=== PATIENT | male | born 1960 | race African-American/Black ===

== ENCOUNTER 2017-06-09 20:35 | Inpatient (IN) | payer BC ==
--- NOTE | 2017-06-10 00:56 | PDOC ---
History of Present Illness - History of Present Illness Initial Comments: 06/10/17 01:00 57M with PMHx significant for diabetes, HTN (noncompliant), who presents to the ED for SOB on exertion. Patient reports 1 month of shortness of breath when walking a couple blocks. He reports trouble breathing when supine, requiring 3 or 4 pillows to sleep. 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 He also noted swelling in his lower extremities. Patient reports dark stools over 2 weeks ago but states his current bowels are normal. Patient reports recent dizziness and cramping in his hands and toes. Patient reports that he hasn't seen a doctor in over 6 months. Social Hx: 3- 4 bottles of beer every day for 20 years. Past cocaine use (over 10 years ago) Denies cough, nausea, vomit, diarrhea , fever chills, palpitations, back pain. Admits to intermittent urinary retention <Leticia Larsen - Last Filed: 06/10/17 01:47> <Isabella Valle - Last Filed: 06/10/17 07:41> - General Chief Complaint: Congestive Heart Failure Stated Complaint: SHORTNESS OF BREATH,DIZZINESS Time Seen by Provider: 06/09/17 23:54 Past History <Leticia Larsen - Last Filed: 06/10/17 01:47> - Past Medical History COPD: No Diabetes: Yes HTN: Yes - Suicide/Smoking/Psychosocial Hx Smoking History: Never smoked Have you smoked in the past 12 months: Yes Number of Cigarettes Smoked Daily: 2 Information on smoking cessation initiated: No Hx Alcohol Use: No Drug/Substance Use Hx: No Substance Use Type: None <Isabella Valle - Last Filed: 06/10/17 07:41> - Past Medical History Allergies/Adverse Reactions: Allergies Allergy/AdvReac Type Severity Reaction Status Date / Time No Known Allergies Allergy Verified 06/09/17 22:22 Home Medications: Ambulatory Orders NK [No Known Home Medication] 03/24/15 Review of Systems - Review of Systems Comments:: 06/10/17 01:13 GENERAL/CONSTITUTIONAL: No fever or chills. No weakness. HEAD, EYES, EARS, NOSE AND THROAT: No change in vision. No ear pain or discharge. No sore throat. CARDIOVASCULAR: No chest pain or shortness of breath. RESPIRATORY: +dyspnea on exertion. +orthopnea No cough, wheezing, or hemoptysis. GASTROINTESTINAL: No nausea, vomiting, diarrhea or constipation. Dark stools over 2 weeks ago (currently normal). GENITOURINARY: No dysuria, frequency. +urinary retention. MUSCULOSKELETAL: No joint or muscle swelling or pain. No neck or back pain. SKIN: +bilateral leg swelling. NEUROLOGIC: +dizziness. + recent cramping in extremities. No headache, loss of consciousness, or change in strength. ENDOCRINE: No increased thirst. No abnormal weight change. HEMATOLOGIC/LYMPHATIC: +anemic, no easy bleeding, or history of blood clots. ALLERGIC/IMMUNOLOGIC: No hives or skin allergy. <Leticia Larsen - Last Filed: 06/10/17 01:47> *Physical Exam - Vital Signs Last Vital Signs Temp Pulse Resp BP Pulse Ox 98.3 F 95 H 22 151/97 99 06/09/17 22:16 06/09/17 22:16 06/09/17 22:16 06/09/17 22:16 06/09/17 22:16 - Physical Exam Comments: 06/10/17 01:47 GENERAL: Awake, alert, and fully oriented, in no acute distress HEAD: No signs of trauma EYES: PERRLA, EOMI, sclera anicteric, conjunctiva clear. No jaundice. ENT: Auricles normal inspection, hearing grossly normal, nares patent, oropharynx clear without exudates. Moist mucosa NECK: Normal ROM, supple, no lymphadenopathy, JVD, or masses LUNGS: orthopnea, dyspnea on exertion. Breath sounds equal, clear to auscultation bilaterally. No wheezes, and no crackles HEART: Regular rate and rhythm, normal S1 and S2, no murmurs, rubs or gallops ABDOMEN: Soft, nontender, normoactive bowel sounds. No guarding, no rebound. No masses. No enlarged liver. EXTREMITIES: Normal range of motion, bilateral pitting edema up to the calf. No clubbing or cyanosis. No cords, erythema, or tenderness NEUROLOGICAL: Cranial nerves II through XII grossly intact. Normal speech, normal gait SKIN: Warm, Dry, normal turgor, no rashes or lesions noted. <Leticia Larsen - Last Filed: 06/10/17 01:47> - Vital Signs Last Vital Signs Temp Pulse Resp BP Pulse Ox 98.3 F 95 H 22 151/97 99 06/09/17 22:16 06/09/17 22:16 06/09/17 22:16 06/09/17 22:16 06/09/17 22:16 <Isabella Valle - Last Filed: 06/10/17 07:41> ED Treatment Course - LABORATORY CBC & Chemistry Diagram: 06/10/17 01:10 06/10/17 01:10 <Leticia Larsen - Last Filed: 06/10/17 01:47> - LABORATORY CBC & Chemistry Diagram: 06/10/17 01:10 06/10/17 01:10 <Isabella Valle - Last Filed: 06/10/17 07:41> Medical Decision Making - Medical Decision Making 06/10/17 05:48 Pt is refusing stool guaiac; pt comes with hx of fatigue and progressive SOB. He admits that he has dark stools for a week, but maintains that his stools are normal now. He wouldn't allow myself or the medical student to guaiac him. HB is low; type and cross requested. 06/10/17 07:39 Pt's receiving his 1st Unit of blood. Pt will be admitted to hospitalist. 06/10/17 07:41 Pt signed out to day ER doc who will admit to the day hospitalists. <Isabella Valle - Last Filed: 06/10/17 07:41> *DC/Admit/Observation/Transfer - Attestations Scribe Attestion: 06/10/17 01:55 Documentation prepared by Leticia Larsen, acting as medical office technology instructor for Isabella Valle MD. <Leticia Larsen - Last Filed: 06/10/17 01:47> <Isabella Valle - Last Filed: 06/10/17 07:41> Diagnosis at time of Disposition: Anemia, Fatigue, Dyspnea - Discharge Dispostion Condition at time of disposition: Poor
[2017-06-10] MEDS ORDERED: FUROSEMIDE 40 MG/4 ML INJECTABLE VIAL IVPUSH ONE (00:57)
[2017-06-10] MEDS ORDERED: FUROSEMIDE 40 MG/4 ML INJECTABLE VIAL ONE (01:01)
[2017-06-10 01:22] LABS: BASO % 1.1 % (0-2.0); EOS % 2.4 % (0-4.5); HEMATOCRIT 16.5 % (35.4-49); LYMPH % 20.7 % (8-40); MCHC 25.5 g/dl (32.0-35.9); MEAN CELL VOLUME 49.9 fl (80-96); MEAN PLT VOLUME 8.7 fl (7.5-11.1); MONO % 11.7 % (3.8-10.2); NEUT % 64.1 % (42.8-82.8); PLATELET COUNT 371 K/MM3 (134-434); RBC 3.31 M/mm3 (4.00-5.60); WHITE BLOOD COUNT 5.8 K/mm3 (4.0-10.0)
[2017-06-10 01:27] LABS: MCH 12.7 pg (25.7-33.7)
[2017-06-10 01:28] LABS: ADD RBC MORPHOLOGY YES; HEMOGLOBIN 4.2 GM/dL (11.7-16.9)
[2017-06-10 01:29] LABS: ANISOCYTOSIS 2+
[2017-06-10 01:35] LABS: INR 1.5 (0.82-1.09); PROTHROMBIN TIME (PATIENT) 16.9 SEC (9.98-11.88)
[2017-06-10 01:52] LABS: ALBUMIN 3.4 g/dl (3.4-5.0); ALK PHOS 103 U/L (45-117); ANION GAP 9 (8-16); BILIRUBIN,TOTAL 0.6 mg/dL (0.2-1.0); BLOOD UREA NITROGEN 12 mg/dL (7-18); CALCIUM 8.7 mg/dL (8.5-10.1); CHLORIDE 103 mmol/L (98-107); CO2 24 mmol/L (21-32); CREATININE 1.3 mg/dL (0.7-1.3); GLUCOSE,RANDOM 92 mg/dL (74-106); LIPASE 97 U/L (73-393); POTASSIUM 4.2 mmol/L (3.5-5.1); SGOT/AST 41 U/L (15-37); SGPT/ALT 95 U/L (12-78); SODIUM 136 mmol/L (136-145); TOT PROT 7.6 g/dl (6.4-8.2)
[2017-06-10] MEDS ORDERED: PANTOPRAZOLE SODIUM 40 MG VIAL IVPUSH ONE (08:10)
--- NOTE | 2017-06-10 09:06 | HP ---
CHIEF COMPLAINT: " SOB with exertion " PCP: No PCP HISTORY OF PRESENT ILLNESS: Patient is a 57-year-old male presented to the ED with the chief complaint of " SOB with exertion". As per the patient, he has been feeling very weak, tired and SOB with exertion x 1 week. Patient reports he never had these symptoms before. Gives history of NSAID use for knee pain. Denies chest pain, palpitation, abdominal pain, nausea, vomiting, fever, chills , rigors or sweating. Patient mentions he noticed dark colored stool 2 weeks ago, multiple episodes, intermittent. Last bowel movement was yesterday, non bloody. Bladder habit normal. Sleep/Appetite normal. Patient says he has never had colonoscopy or Endoscopy. Doesn't visit doctors regularly, non compliant with medications. 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 Family History: Non contributory. Allergies No Known Allergies Allergy (Verified 06/09/17 22:22) HOME MEDICATIONS: Home Medications Medication Instructions Recorded NK [No Known Home Medication] 03/24/15 REVIEW OF SYSTEMS CONSTITUTIONAL: Present: generalized weakness Absent: fever, chills, diaphoresis, malaise, loss of appetite, weight change HEENT: Absent: rhinorrhea, nasal congestion, throat pain, throat swelling, difficulty swallowing, mouth swelling, ear pain, eye pain, visual changes CARDIOVASCULAR: Absent: chest pain, syncope, palpitations, irregular heart rate, lightheadedness , peripheral edema RESPIRATORY: Present: shortness of breath, dyspnea with exertion, Absent: cough, orthopnea, wheezing, stridor, hemoptysis GASTROINTESTINAL: Absent: abdominal pain, abdominal distension, nausea, vomiting, diarrhea, constipation, melena, hematochezia GENITOURINARY: Absent: dysuria, frequency, urgency, hesitancy, hematuria, flank pain, genital pain MUSCULOSKELETAL: Absent: myalgia, arthralgia, joint swelling, back pain, neck pain SKIN: Absent: rash, itching, pallor HEMATOLOGIC/IMMUNOLOGIC: Absent: easy bleeding, easy bruising, lymphadenopathy, frequent infections ENDOCRINE: Absent: unexplained weight gain, unexplained weight loss, heat intolerance, cold intolerance NEUROLOGIC: Absent: headache, focal weakness or paresthesias, dizziness, unsteady gait, seizure, mental status changes, bladder or bowel incontinence PSYCHIATRIC: Absent: anxiety, depression, suicidal or homicidal ideation, hallucinations. PHYSICAL EXAMINATION Vital Signs - 24 hr 06/09/17 06/10/17 22:16 07:47 Temperature 98.3 F Pulse Rate 95 H Pulse Rate [ 98 H Left] Respiratory 22 16 Rate Blood Pressure 151/97 Blood Pressure 127/68 [Arm] O2 Sat by Pulse 99 95 Oximetry (%) GENERAL: Patient is comfortably lying in bed, Awake, alert, and fully oriented, in no acute distress. HEAD: Normal with no signs of trauma. EYES: EOM intact, Pallor +, no icterus. EARS, NOSE, THROAT: Ears normal. Moist mucous membranes. NECK: Supple. LUNGS: Breath sounds equal, clear to auscultation bilaterally. No wheezes, and no crackles. No accessory muscle use. HEART: Regular rate and rhythm, normal S1 and S2 with soft systolic murmur. ABDOMEN: Soft, nontender, not distended, normoactive bowel sounds, no guarding, no rebound, no masses. No hepatomegaly or splenomegaly. MUSCULOSKELETAL: Normal range of motion at all joints. No bony deformities or tenderness. No CVA tenderness. UPPER EXTREMITIES: 2+ pulses, warm, well-perfused. No cyanosis. No clubbing. No peripheral edema. LOWER EXTREMITIES: 2+ pulses, warm, well-perfused. No calf tenderness. No peripheral edema. NEUROLOGICAL: No facial droop, power 5/5 in all extremities, Cranial nerves II- XII intact. Normal speech. Gait not observed. PSYCHIATRIC: Cooperative. Good eye contact. Appropriate mood and affect. SKIN: Warm, dry, normal turgor, no rashes or lesions noted, normal capillary refill. Laboratory Results - last 24 hr 06/10/17 06/10/17 06/10/17 01:10 01:10 01:10 WBC 5.8 RBC 3.31 L Hgb 4.2 L* Hct 16.5 L MCV 49.9 L MCH 12.7 L MCHC 25.5 L RDW 22.0 H Plt Count 371 MPV 8.7 Neutrophils % 64.1 Lymphocytes % 20.7 Monocytes % 11.7 H Eosinophils % 2.4 Basophils % 1.1 Hypochromia 3+ Anisocytosis 2+ Microcytosis 3+ PT with INR 16.90 H INR 1.50 H Sodium Potassium Chloride Carbon Dioxide Anion Gap BUN Creatinine Creat Clearance w eGFR Random Glucose Calcium Total Bilirubin AST ALT Alkaline Phosphatase Creatine Kinase 121 Troponin I < 0.02 B-Natriuretic Peptide Total Protein Albumin Lipase Alcohol, Quantitative Blood Type Antibody Screen Crossmatch 06/10/17 06/10/17 06/10/17 01:10 01:10 01:10 WBC RBC Hgb Hct MCV MCH MCHC RDW Plt Count MPV Neutrophils % Lymphocytes % Monocytes % Eosinophils % Basophils % Hypochromia Anisocytosis Microcytosis PT with INR INR Sodium 136 Potassium 4.2 Chloride 103 Carbon Dioxide 24 Anion Gap 9 BUN 12 Creatinine 1.3 Creat Clearance w eGFR 56.70 Random Glucose 92 Calcium 8.7 Total Bilirubin 0.6 AST 41 H ALT 95 H Alkaline Phosphatase 103 Creatine Kinase Troponin I B-Natriuretic Peptide 877.41 H Total Protein 7.6 Albumin 3.4 Lipase 97 Alcohol, Quantitative < 5.0 Blood Type Antibody Screen Crossmatch 06/10/17 06/10/17 01:50 01:54 WBC RBC Hgb Hct MCV MCH MCHC RDW Plt Count MPV Neutrophils % Lymphocytes % Monocytes % Eosinophils % Basophils % Hypochromia Anisocytosis Microcytosis PT with INR INR Sodium Potassium Chloride Carbon Dioxide Anion Gap BUN Creatinine Creat Clearance w eGFR Random Glucose Calcium Total Bilirubin AST ALT Alkaline Phosphatase Creatine Kinase Troponin I B-Natriuretic Peptide Total Protein Albumin Lipase Alcohol, Quantitative Blood Type O POSITIVE O POSITIVE Antibody Screen Negative Crossmatch See Detail ASSESSMENT/PLAN: Patient is a 57-year-old male with significant past medical history of Hypertension, DM (non compliant), current smoker presented to the ED with the chief complaint of " SOB with exertion". # Symptomatic Microcytic anemia likely due to Upper GI bleed Could be due to NSAID use, PUD c/o SOB with exertion, on arrival, H/H 4.2/16.5 MCV 49.9 Admitted in Med-Surg/Inpatient 2 PRBC to be given with a repeat CBC 1 hr after transfusion Stool occult done at bed side, brown stool, no mike blood, report pending IV Protonix drip started IV hydration NPO BNP 877, will do an Echo Discussed case with Dr. Cat(covering for Dr. Choi) who agrees to the above plan. Plans to do a flip on 06/12 For preparation of the procedure, clear diet tomorrow, NPO after midnight on 06/11, Ducolax and Golytely to be given Iron profile not sent since patient had already received 1 PRBC when admission was sent. # Polysubstance abuse (Alcohol, cocaine) U. tox positive for cocaine, alcohol level < 5 Counseling for cessation # Diabetes Mellitus A1c sent, ISS, finger stick monitoring. Watch for hypoglycemic episodes. # FEN IV NS @ 83 mls.hr Electrolytes to be repeated in AM NPO # Prophylaxis For DVT: SCDs and early ambulation, no heparin due to anemia For GI: On IV Protonix drip # Code Status: Full Code # Dispo: Duration of stay depends on the result of the procedure. Illness, Investigation and Plan of care explained to the patient. He verbalized understanding. Case seen and discussed with Dr. Lee. Visit type - Emergency Visit Emergency Visit: Yes ED Registration Date: 06/10/17 Care time: The patient presented to the Emergency Department on the above date and was hospitalized for further evaluation of their emergent condition. - New Patient This patient is new to me today: Yes Date on this admission: 06/10/17 - Critical Care Critical Care patient: No
[2017-06-10] MEDS ORDERED: PANTOPRAZOLE SODIUM 40 MG VIAL ONE (10:17)
[2017-06-10] MEDS: SODIUM CHLORIDE 1,000 ML IV SCH (11:12)
[2017-06-10] MEDS: PANTOPRAZOLE SODIUM 80 MG in SODIUM CHLORIDE 100 ML IVPB SCH ×2 (12:09→17:31)
[2017-06-10 12:10] LABS: METHADONE, UR NEGATIVE ng/ml (CUTOFF=300); OPIATES, URI NEGATIVE ng/ml (CUTOFF=300); PHENCYCLIDINE,URINE NEGATIVE ng/ml (CUTOFF=25); URINE AMPHETAMINES NEGATIVE ng/ml (CUTOFF=500); URINE BARBITURATES NEGATIVE ng/ml (CUTOFF=200); URINE BENZODIAZEPINES NEGATIVE ng/ml (CUTOFF=200)
[2017-06-10 12:11] LABS: COCAINE, UR POSITIVE ng/ml (CUTOFF=300)
--- NOTE | 2017-06-10 13:02 | PN ---
Teaching Attending Note Name of Resident: Jazz Ewing ATTENDING PHYSICIAN STATEMENT Time of evaluation: 9:40 AM I saw and evaluated the patient. I reviewed the resident's note and discussed the case with the resident. I agree with the resident's findings and plan as documented. SUBJECTIVE: 57 yom with PMHx of DM, HTN, no recent follow up, not on any meds, comes with progressive VICENTE, now only with walking a few steps. Reports melena few weeks ago , none recently. Denies any chest pain, palpitations, dizziness, BRBRP, leg swelling, PND/orthopnea. Was found with Hb 4.2 in ED, and guaiac neg. Currently patient in bed comfortable, denies any symptoms. 12 point ROS done, neg except above. OBJECTIVE: Vital Signs Period Temp Pulse Resp BP Sys/Mac Pulse Ox Last 24 Hr 98.3 F 95-98 16-22 127-151/68-97 95-99 Intake & Output 06/07/17 06/08/17 06/09/17 06/10/17 23:59 23:59 23:59 23:59 Weight 260 lb GENERAL: Awake, alert, and fully oriented, in no acute distress, positive pallor HEAD: Normal with no signs of trauma. EYES: Pupils equal, round and reactive to light, extraocular movements intact, sclera anicteric, conjunctiva clear. No lid lag. EARS, NOSE, THROAT: Ears normal, nares patent, oropharynx clear without exudates. Moist mucous membranes. NECK: Normal range of motion, supple without lymphadenopathy, JVD, or masses. LUNGS: Breath sounds equal, clear to auscultation bilaterally. No wheezes, and no crackles. No accessory muscle use. HEART: S1S2 regular ABDOMEN: Soft, obese, nontender, not distended, normoactive bowel sounds, no guarding, no rebound, no masses. No hepatomegaly or splenomegaly elicited. Rectal: skin tag no external haemorrhoids, minimal watery brown stool, guaiac neg MUSCULOSKELETAL: Normal range of motion at all joints. No bony deformities or tenderness. No CVA tenderness. UPPER EXTREMITIES: 2+ pulses, warm, well-perfused. No cyanosis. No clubbing. No peripheral edema. LOWER EXTREMITIES: 2+ pulses, warm, well-perfused. No calf tenderness. No peripheral edema. NEUROLOGICAL: Cranial nerves II-XII intact. Normal speech. PSYCHIATRIC: Cooperative. Good eye contact. Appropriate mood and affect. SKIN: Warm, dry, normal turgor, no rashes or lesions noted, normal capillary refill. Home Medication List Medication Instructions Recorded Confirmed Type NK [No Known Home Medication] 03/24/15 06/09/17 History Active Medications Generic Name Dose Route Start Last Admin Trade Name Naveen PRN Reason Stop Dose Admin Pantoprazole Sodium 80 mg/ 100 mls @ 10 mls/hr 06/10/17 08:15 Sodium Chloride IVPB Q10H ANNA 8 MG/HR Sodium Chloride 1,000 mls @ 83 mls/hr 06/10/17 09:00 06/10/17 11:12 Normal Saline - IV 83 mls/hr ASDIR ANNA Administration Laboratory Results - last 24 hr 06/10/17 06/10/17 06/10/17 01:10 01:10 01:10 WBC 5.8 RBC 3.31 L Hgb 4.2 L* Hct 16.5 L MCV 49.9 L MCH 12.7 L MCHC 25.5 L RDW 22.0 H Plt Count 371 MPV 8.7 Neutrophils % 64.1 Lymphocytes % 20.7 Monocytes % 11.7 H Eosinophils % 2.4 Basophils % 1.1 Hypochromia 3+ Anisocytosis 2+ Microcytosis 3+ PT with INR 16.90 H INR 1.50 H Sodium Potassium Chloride Carbon Dioxide Anion Gap BUN Creatinine Creat Clearance w eGFR Random Glucose Calcium Total Bilirubin AST ALT Alkaline Phosphatase Creatine Kinase 121 Troponin I < 0.02 B-Natriuretic Peptide Total Protein Albumin Lipase Stool Occult Blood Opiates Screen Methadone Screen Barbiturate Screen Phencyclidine Screen Ur Amphetamines Screen MDMA (Ecstasy) Screen Benzodiazepines Screen Cocaine Screen U Marijuana (THC) Screen Alcohol, Quantitative Blood Type Antibody Screen Crossmatch 06/10/17 06/10/17 06/10/17 01:10 01:10 01:10 WBC RBC Hgb Hct MCV MCH MCHC RDW Plt Count MPV Neutrophils % Lymphocytes % Monocytes % Eosinophils % Basophils % Hypochromia Anisocytosis Microcytosis PT with INR INR Sodium 136 Potassium 4.2 Chloride 103 Carbon Dioxide 24 Anion Gap 9 BUN 12 Creatinine 1.3 Creat Clearance w eGFR 56.70 Random Glucose 92 Calcium 8.7 Total Bilirubin 0.6 AST 41 H ALT 95 H Alkaline Phosphatase 103 Creatine Kinase Troponin I B-Natriuretic Peptide 877.41 H Total Protein 7.6 Albumin 3.4 Lipase 97 Stool Occult Blood Opiates Screen Methadone Screen Barbiturate Screen Phencyclidine Screen Ur Amphetamines Screen MDMA (Ecstasy) Screen Benzodiazepines Screen Cocaine Screen U Marijuana (THC) Screen Alcohol, Quantitative < 5.0 Blood Type Antibody Screen Crossmatch 06/10/17 06/10/17 06/10/17 01:50 01:54 10:20 WBC RBC Hgb Hct MCV MCH MCHC RDW Plt Count MPV Neutrophils % Lymphocytes % Monocytes % Eosinophils % Basophils % Hypochromia Anisocytosis Microcytosis PT with INR INR Sodium Potassium Chloride Carbon Dioxide Anion Gap BUN Creatinine Creat Clearance w eGFR Random Glucose Calcium Total Bilirubin AST ALT Alkaline Phosphatase Creatine Kinase Troponin I B-Natriuretic Peptide Total Protein Albumin Lipase Stool Occult Blood Negative Opiates Screen Methadone Screen Barbiturate Screen Phencyclidine Screen Ur Amphetamines Screen MDMA (Ecstasy) Screen Benzodiazepines Screen Cocaine Screen U Marijuana (THC) Screen Alcohol, Quantitative Blood Type O POSITIVE O POSITIVE Antibody Screen Negative Crossmatch See Detail 06/10/17 11:18 WBC RBC Hgb Hct MCV MCH MCHC RDW Plt Count MPV Neutrophils % Lymphocytes % Monocytes % Eosinophils % Basophils % Hypochromia Anisocytosis Microcytosis PT with INR INR Sodium Potassium Chloride Carbon Dioxide Anion Gap BUN Creatinine Creat Clearance w eGFR Random Glucose Calcium Total Bilirubin AST ALT Alkaline Phosphatase Creatine Kinase Troponin I B-Natriuretic Peptide Total Protein Albumin Lipase Stool Occult Blood Opiates Screen Negative Methadone Screen Negative Barbiturate Screen Negative Phencyclidine Screen Negative Ur Amphetamines Screen Negative MDMA (Ecstasy) Screen Negative Benzodiazepines Screen Negative Cocaine Screen Positive U Marijuana (THC) Screen Negative Alcohol, Quantitative Blood Type Antibody Screen Crossmatch CXR - large heart, hiatal hernia, no acute chest pathology ASSESSMENT AND PLAN: 57 yom with DM, HTN, cocaine use, no recent follow up comes with severe symptomatic anemia and melena -Severe symptomatic anemia -h/o Melena -Cocaine use -DM -HTN Plan: Transfuse 2units pRBC, NPO for now. NPO and gentle hydration. Protonix drip. GI consulted, discussed with Dr. Borrego, plan for EGD/colonoscopy tomorrow or Monday. hemodyanmics stable. Monitor closely. Check A1c, ISS. start BP meds based on BP readings inhouse. BNP noted, but no clinical evidence of volume overload, VICENTE suspected from severe anemia. Check 2D echo and monitor. DVTPPx with SCDs Plan discussed with patient in detail, all questions answered. total admit time spent 55 min.
[2017-06-10 14:59] LABS: URINE APPEARANCE CLEAR; URINE BILIRUBIN NEGATIVE (NEGATIVE); URINE BLOOD NEGATIVE (NEGATIVE); URINE COLOR LTYELLOW; URINE GLUCOSE (UA) NEGATIVE (NEGATIVE); URINE KETONE TRACE (NEGATIVE); URINE LEUK ESTERASE NEGATIVE (NEGATIVE); URINE NITRITE NEGATIVE (NEGATIVE); URINE PROTEIN NEGATIVE (NEGATIVE)
--- NOTE | 2017-06-10 15:26 | EKG ---
Test Reason : Blood Pressure : / mmHG Vent. Rate : 090 BPM Atrial Rate : 090 BPM P-R Int : 170 ms QRS Dur : 076 ms QT Int : 368 ms P-R-T Axes : 064 -05 037 degrees QTc Int : 450 ms NORMAL SINUS RHYTHM NONSPECIFIC T WAVE ABNORMALITY ABNORMAL ECG WHEN COMPARED WITH ECG OF 17-DEC-2006 20:58, NO SIGNIFICANT CHANGE WAS FOUND Confirmed by Dillon Stern ([id number]) on 06/10/2017 3:26:19 PM Referred By: Confirmed By:Dillon Stern
--- NOTE | 2017-06-10 16:27 | PN ---
Progress Note (short form) - Note Progress Note: GI CONSULTATION: FOR DR SHADI HANSON PLEASE SEE COMPLETE CONSUILT DICTATION IN BRIEF: 57 AAM WITH HTN/DM PRESNETS WITH SYMPTOMATIC ANEMIA ETOH ABUSE x YEARS DAILY NSAIDS HGB <5 AND MICROCYTIC INDICES ON MY cam g- [facility] STOOL RECC: PPI PO DAILY AVOID NSAIDS WATCH CLOSELY FOR ETOH W/D PRBC'S AND A DOSE OF VIT K SOLID DIET TODAY TOMORROW START CLEARS PO GOLYTLY 4 LITERS OR MIRALAX 255 GRAMS WITH 4 DULCOLAX FOR EGD/COLON PLS DO NOT START IRON PRIOR TO SCOPES NPO AT [place] MONDAY FOR FLIP MON WITH DR HANSON D/W HO THANKS, MD FELIPA
[2017-06-10 19:07] LABS: CHOLESTEROL 71 mg/dL (50-200); HDL CHOLESTEROL 28 mg/dL (40-60); LDL CHOLESTEROL (ONLY SJRH) 42 mg/dL (5-100); TRIGLYCERIDES 41 mg/dL (35-160)
[2017-06-10 21:19] LABS: MCHC 27.1 g/dl (32.0-35.9); MEAN PLT VOLUME 8.6 fl (7.5-11.1); PLATELET COUNT 345 K/MM3 (134-434); RBC 3.85 M/mm3 (4.00-5.60); RDW 27.4 % (11.9-15.9); WHITE BLOOD COUNT 6.5 K/mm3 (4.0-10.0)
[2017-06-10 21:20] LABS: MCH 14.9 pg (25.7-33.7)
[2017-06-10 21:25] LABS: HEMATOCRIT 21.1 % (35.4-49); HEMOGLOBIN 5.7 GM/dL (11.7-16.9)
[2017-06-11] MEDS ORDERED: PANTOPRAZOLE SODIUM 160 MG in DEXTROSE 5%-WATER - 290 ML IVPB SCH (02:45)
[2017-06-11 03:43] VITALS: BMI 37.0
[2017-06-11 07:12] LABS: HEMATOCRIT 21.1 % (35.4-49); MCHC 26.5 g/dl (32.0-35.9); MEAN CELL VOLUME 55.1 fl (80-96); PLATELET COUNT 348 K/MM3 (134-434); RBC 3.83 M/mm3 (4.00-5.60); RDW 27.6 % (11.9-15.9); WHITE BLOOD COUNT 6.3 K/mm3 (4.0-10.0)
[2017-06-11 07:24] LABS: MCH 14.6 pg (25.7-33.7)
[2017-06-11 07:27] LABS: HEMOGLOBIN 5.6 GM/dL (11.7-16.9)
[2017-06-11 07:30] LABS: ANION GAP 6 (8-16); BLOOD UREA NITROGEN 16 mg/dL (7-18); CALCIUM 7.9 mg/dL (8.5-10.1); CHLORIDE 104 mmol/L (98-107); CO2 28 mmol/L (21-32); CREATININE 1.2 mg/dL (0.7-1.3); GLUCOSE,RANDOM 77 mg/dL (74-106); POTASSIUM 4.6 mmol/L (3.5-5.1); SODIUM 138 mmol/L (136-145)
--- NOTE | 2017-06-11 07:37 | CONS ---
DATE OF CONSULTATION: 06/10/2017 GASTROENTEROLOGY CONSULTATION REASON FOR CONSULTATION: I was asked by the medical team of Dr. Choi to evaluate the patient for anemia and possible GI bleeding. HISTORY OF PRESENT ILLNESS: The patient is a 57-year-old -[place] gentleman with a past medical history of hypertension and diabetes. He says his medical doctor is Dr. Prescott, but he has not seen him for a while. The patient says he is somewhat noncompliant with his medical care. He came into the emergency room yesterday complaining of a month of progressive shortness of breath on exertion. He was not having any chest pain. 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 He had some swelling in his lower extremities. He reported having some dark stools 2 weeks ago, but his current bowel movements were noted. On admission it was noted that he had a marked anemia. The patient drinks alcohol moderately. He has 3 to 5 bottles of beer every day for the past 20 years. He has used cocaine in the past and even on admission his toxicology was positive. The patient says that he does not smoke. He says he has not had significant surgery except on an ankle. He says he has no family history of colorectal disease, colorectal cancer or colitis. He himself has never had any colonoscopy or GI evaluation. He denies any drug allergies. He is not on any medications as an outpatient. The patient admits that he was taking nonsteroidals, such as Motrin, for knee pain, daily for the past month or so. He came in with a hemoglobin of 4.2 and hematocrit of 16.5. The patient reports he has no GI complaints. He denies nausea, vomiting, abdominal pain. In fact, he is "starving," and would like to eat at this time. He is having no heartburn odynophagia or dysphagia. He is having no unintentional weight loss or change in bowel habits. As noted, only his stools were dark a couple of weeks ago, but now they have been normal again. In the hospital, he has been receiving pantoprazole IV, as well as IV fluid. PHYSICAL EXAMINATION: Vital Signs: He is afebrile. His vital signs are stable. He is not tachycardic. His blood pressure is 130/68. General: He is well-developed, well-nourished, in no acute distress. He is obese. HEENT: Sclerae are anicteric. Neck: Supple. Abdomen: Bowel sounds are active. His abdomen is symmetric, without scars. There are masses, rebound or guarding. There is no tenderness to palpation. Rectal: Exam reveals large external hemorrhoids, and stool that is [facility]. DIAGNOSTIC STUDIES: His laboratory data is notable in that his white count is 5.8 with hemoglobin 4.2, hematocrit 16, MCV 49; platelet count 371,000. INR 1.5. Chemistries note serum sodium 136, potassium 4.2, chloride 103, BUN 12, creatinine 1.3, AST 41, ALT 95, alkaline phosphatase 103, albumin 3.4. His lipase is normal at 97. He has not had any GI films performed, except he did have an ultrasound of the right upper quadrant that revealed borderline hepatomegaly without other findings. The rest of the exam is unremarkable. ASSESSMENT: It is my impression that the patient is a 57-year-old -[place] gentleman with hypertension and diabetes. He is noncompliant with medical care. He comes in with a symptomatic anemia. He is currently guaiac negative, but his hemoglobin was 4. He has history of moderate alcohol abuse as well as nonsteroidal usage. Although he is hemodynamically stable and there is no evidence any ongoing acute or active bleeding, clearly there is concern that he has an occult lesion in the gastrointestinal tract, whether it be an ulcer in the stomach, an arteriovenous malformation, or polyp, tumor or mass in the stomach or in the colon is most likely. PLAN: I think, based on his age, he needs to undergo a complete evaluation, to include endoscopy and colonoscopy. I have discussed this with him in detail and he grants and informed consent. In addition, I have discussed with the resident the bowel preparation. For now, I would give him a solid diet. I would keep him on a proton-pump inhibitor. It can be orally. He does not need to be IV. I would watch him closely for withdrawal. It is unclear when his last drink truly was. I would give him a dose of vitamin K. Keep him off his nonsteroidals. In the morning start a clear liquid diet and then begin a GoLYTELY bowel lavage. Then he will be set n.p.o. at midnight for Monday and on MondayJune 12 Dr. Choi will proceed with an endoscopy and colonoscopy. BERNICE LEO M.D. [facility]/[id number]
[2017-06-11] MEDS: amLODIPine BESYLATE 5 MG TABLET (FP) PO SCH (09:13)
[2017-06-11] MEDS: SODIUM CHLORIDE 1,000 ML IV SCH (09:14)
--- NOTE | 2017-06-11 10:52 | PN ---
Teaching Attending Note Name of Resident: . ATTENDING PHYSICIAN STATEMENT Time of evaluation: 9:50 AM SUBJECTIVE: Patient seen and examined, no events overnight. Overall unchanged. OBJECTIVE: Vital Signs Period Temp Pulse Resp BP Sys/Mac Pulse Ox Last 24 Hr 97.4 F-98.4 F 80-89 18-24 140-174/80-102 98-98 Intake & Output 06/08/17 06/09/17 06/10/17 06/11/17 23:59 23:59 23:59 23:59 Intake Total 1455 642 Output Total 650 Balance 805 642 Weight 260 lb 258 lb General: lying in bed in no acute distress Abdomen: soft, obese, NT, positive bowel sounds extremities: no edema chest: CTAB, no rales or wheezing Home Medication List Medication Instructions Recorded Confirmed Type NK [No Known Home Medication] 03/24/15 06/09/17 History Active Medications Generic Name Dose Route Start Last Admin Trade Name Davidq PRN Reason Stop Dose Admin Amlodipine Besylate 5 mg 06/11/17 10:00 06/11/17 09:13 Norvasc - PO 5 mg DAILY ANNA Administration Dextrose/Sodium Chloride 1,000 mls @ 75 mls/hr 06/11/17 11:00 D5-Ns - IV ASDIR ANNA Pantoprazole Sodium 40 mg 06/11/17 22:00 Protonix Iv IVPUSH BID ANNA Phytonadione 5 mg 06/11/17 11:30 Mephyton - PO 06/11/17 11:31 ONCE ONE Laboratory Results - last 24 hr 06/10/17 06/10/17 06/10/17 01:10 01:10 01:10 WBC RBC Hgb Hct MCV MCH MCHC RDW Plt Count MPV Sodium Potassium Chloride Carbon Dioxide Anion Gap BUN Creatinine Random Glucose Calcium Creatine Kinase Troponin I Triglycerides 41 Cholesterol 71 Total LDL Cholesterol 42 HDL Cholesterol 28 L Vitamin B12 878 Serum Folate 20 H Urine Color Urine Appearance Urine pH Ur Specific [place] Urine Protein Urine Glucose (UA) Urine Ketones Urine Blood Urine Nitrite Urine Bilirubin Urine Urobilinogen Ur Leukocyte Esterase Stool Occult Blood Opiates Screen Methadone Screen Barbiturate Screen Phencyclidine Screen Ur Amphetamines Screen MDMA (Ecstasy) Screen Benzodiazepines Screen Cocaine Screen U Marijuana (THC) Screen Blood Type Antibody Screen Crossmatch 06/10/17 06/10/17 06/10/17 01:50 01:54 10:20 WBC RBC Hgb Hct MCV MCH MCHC RDW Plt Count MPV Sodium Potassium Chloride Carbon Dioxide Anion Gap BUN Creatinine Random Glucose Calcium Creatine Kinase Troponin I Triglycerides Cholesterol Total LDL Cholesterol HDL Cholesterol Vitamin B12 Serum Folate Urine Color Urine Appearance Urine pH Ur Specific [place] Urine Protein Urine Glucose (UA) Urine Ketones Urine Blood Urine Nitrite Urine Bilirubin Urine Urobilinogen Ur Leukocyte Esterase Stool Occult Blood Negative Opiates Screen Methadone Screen Barbiturate Screen Phencyclidine Screen Ur Amphetamines Screen MDMA (Ecstasy) Screen Benzodiazepines Screen Cocaine Screen U Marijuana (THC) Screen Blood Type O POSITIVE Antibody Screen Negative Crossmatch See Detail See Detail 06/10/17 06/10/17 06/10/17 11:18 21:13 21:13 WBC 6.5 RBC 3.85 L Hgb 5.7 L* D Hct 21.1 L D MCV 55.0 L D MCH 14.9 L MCHC 27.1 L RDW 27.4 H Plt Count 345 MPV 8.6 Sodium Potassium Chloride Carbon Dioxide Anion Gap BUN Creatinine Random Glucose Calcium Creatine Kinase 105 Troponin I < 0.02 Triglycerides Cholesterol Total LDL Cholesterol HDL Cholesterol Vitamin B12 Serum Folate Urine Color Urine Appearance Urine pH Ur Specific [place] Urine Protein Urine Glucose (UA) Urine Ketones Urine Blood Urine Nitrite Urine Bilirubin Urine Urobilinogen Ur Leukocyte Esterase Stool Occult Blood Opiates Screen Negative Methadone Screen Negative Barbiturate Screen Negative Phencyclidine Screen Negative Ur Amphetamines Screen Negative MDMA (Ecstasy) Screen Negative Benzodiazepines Screen Negative Cocaine Screen Positive U Marijuana (THC) Screen Negative Blood Type Antibody Screen Crossmatch 06/10/17 06/11/17 06/11/17 Unknown 05:30 05:30 WBC 6.3 RBC 3.83 L Hgb 5.6 L* Hct 21.1 L MCV 55.1 L MCH 14.6 L MCHC 26.5 L RDW 27.6 H Plt Count 348 MPV 9.0 Sodium 138 Potassium 4.6 Chloride 104 Carbon Dioxide 28 Anion Gap 6 L BUN 16 D Creatinine 1.2 Random Glucose 77 Calcium 7.9 L Creatine Kinase Troponin I Triglycerides Cholesterol Total LDL Cholesterol HDL Cholesterol Vitamin B12 Serum Folate Urine Color Ltyellow Urine Appearance Clear Urine pH 6.0 Ur Specific [place] 1.016 Urine Protein Negative Urine Glucose (UA) Negative Urine Ketones Trace H Urine Blood Negative Urine Nitrite Negative Urine Bilirubin Negative Urine Urobilinogen 2.0 Ur Leukocyte Esterase Negative Stool Occult Blood Opiates Screen Methadone Screen Barbiturate Screen Phencyclidine Screen Ur Amphetamines Screen MDMA (Ecstasy) Screen Benzodiazepines Screen Cocaine Screen U Marijuana (THC) Screen Blood Type Antibody Screen Crossmatch ASSESSMENT AND PLAN: 57 yom with DM, HTN, cocaine use, no recent follow up comes with severe symptomatic anemia and melena -Severe symptomatic anemia -h/o Melena -Cocaine use -?ETOH use -Coagulopathy, ?ETOH related -DM -HTN Plan: Transfuse additional 2 units PRBC, repeat CBC later today. GI input noted. Patient agreable to golytely prep, start 4L prep this afternoon, discussed with RN. Change Protonix to 40 mg IV BID Give Vitamin K 5 mg PO once. ETOH history with elevated INR, check abdominal ultrasound to assess liver/ spleen. NPO past midnight. hemodyanmics stable. Monitor closely. Follow up A1c, place on BGM, hold sliding scale for now. Start norvasc 5 mg daily. BNP noted, but no clinical evidence of volume overload, VICENTE suspected from severe anemia. Follow up 2D echo and monitor. DVTPPx with SCDs Plan discussed with patient in detail, all questions answered.
[2017-06-11] MEDS ORDERED: PHYTONADIONE 5 MG TABLET PO ONE (11:30)
[2017-06-11] MEDS ORDERED: PEG3350/SOD SULF,BICARB,CL/KCL 4,000 ML SOLN.RECON PO ONE (14:00)
[2017-06-11] MEDS: DEXTROSE 5%-NORMAL SALINE 1,000 ML IV SCH (14:12)
[2017-06-11] MEDS: PANTOPRAZOLE SODIUM 40 MG VIAL IVPUSH SCH (21:53)
[2017-06-11 22:34] LABS: BASO % 1.2 % (0-2.0); EOS % 3.5 % (0-4.5); HEMATOCRIT 25.8 % (35.4-49); HEMOGLOBIN 7.3 GM/dL (11.7-16.9); LYMPH % 17.7 % (8-40); MCHC 28.4 g/dl (32.0-35.9); MEAN CELL VOLUME 59.1 fl (80-96); MEAN PLT VOLUME 9.1 fl (7.5-11.1); MONO % 12.7 % (3.8-10.2); NEUT % 64.9 % (42.8-82.8); PLATELET COUNT 339 K/MM3 (134-434); RBC 4.37 M/mm3 (4.00-5.60); RDW 34.9 % (11.9-15.9); WHITE BLOOD COUNT 7.1 K/mm3 (4.0-10.0)
[2017-06-11 22:36] LABS: MCH 16.8 pg (25.7-33.7)
--- NOTE | 2017-06-12 06:53 | PN ---
Physical Exam: SUBJECTIVE: Patient seen and examined by me this AM - Pt unable to finish bowel prep overnight. EGD, Colonoscopy rescheduled for tomorrow. Pt counseled on importance of completing bowel regimen. - Pt denied any further episode of melena, hematochezia overnight; diarrhea from prep. No lightheadness/JEFFERY, CP, SOB, N/v, abdominal pain, LE edema, rashes or new neuro findings. OBJECTIVE: Vital Signs Intake & Output 06/09/17 06/10/17 06/11/17 06/12/17 23:59 23:59 23:59 23:59 Intake Total 1455 1822 1450 Output Total 650 Balance 805 1822 1450 Weight 117.934 kg 117.027 kg Period Temp Pulse Resp BP Sys/Mac Pulse Ox Last 24 Hr 98.4 F-98.9 F 74-90 18-24 137-164/71-99 98-99 GENERAL: The patient is awake, alert, and fully oriented, in no acute distress. Laying comfortably in bed. HEAD: Normal with no signs of trauma. EYES: PERRL, extraocular movements intact, sclera anicteric, conjunctiva clear. No ptosis. ENT: Ears normal, nares patent, oropharynx clear without exudates, moist mucous membranes. NECK: Trachea midline, full range of motion, supple. LUNGS: Expiratory rhonchi in upper airway. Otherwise, clear to auscultation bilaterally, no wheezes, no crackles, no accessory muscle use. HEART: Regular rate and rhythm, S1, S2 without murmur, rub or gallop. ABDOMEN: Soft, nontender, nondistended, normoactive bowel sounds, no guarding, no rebound, no hepatosplenomegaly, no masses. EXTREMITIES: 2+ pulses, warm, well-perfused. 1+ LE edema. NEUROLOGICAL: Cranial nerves II through XII grossly intact. Normal speech, gait not observed. PSYCH: Normal mood, normal affect. SKIN: Warm, dry, normal turgor, no rashes or lesions noted Laboratory Results - last 24 hr CBC, BMP 06/12/17 05:45 06/12/17 05:47 06/11/17 21:30 06/11/17 05:30 06/10/17 06/10/17 06/11/17 01:50 01:54 05:30 WBC 6.3 RBC 3.83 L Hgb 5.6 L* Hct 21.1 L MCV 55.1 L MCH 14.6 L MCHC 26.5 L RDW 27.6 H Plt Count 348 MPV 9.0 Neutrophils % Lymphocytes % Monocytes % Eosinophils % Basophils % Sodium Potassium Chloride Carbon Dioxide Anion Gap BUN Creatinine POC Glucometer Random Glucose Calcium Blood Type O POSITIVE Antibody Screen Negative Crossmatch See Detail See Detail 06/11/17 06/11/17 06/11/17 05:30 21:30 23:16 WBC 7.1 RBC 4.37 Hgb 7.3 L D Hct 25.8 L D MCV 59.1 L D MCH 16.8 L MCHC 28.4 L RDW 34.9 H Plt Count 339 MPV 9.1 Neutrophils % 64.9 Lymphocytes % 17.7 Monocytes % 12.7 H Eosinophils % 3.5 Basophils % 1.2 Sodium 138 Potassium 4.6 Chloride 104 Carbon Dioxide 28 Anion Gap 6 L BUN 16 D Creatinine 1.2 POC Glucometer 99 Random Glucose 77 Calcium 7.9 L Blood Type Antibody Screen Crossmatch 06/12/17 05:25 WBC RBC Hgb Hct MCV MCH MCHC RDW Plt Count MPV Neutrophils % Lymphocytes % Monocytes % Eosinophils % Basophils % Sodium Potassium Chloride Carbon Dioxide Anion Gap BUN Creatinine POC Glucometer 108 Random Glucose Calcium Blood Type Antibody Screen Crossmatch Active Medications Generic Name Dose Route Start Last Admin Trade Name Freq PRN Reason Stop Dose Admin Amlodipine Besylate 5 mg 06/11/17 10:00 06/11/17 09:13 Norvasc - PO 5 mg DAILY ANNA Administration Dextrose/Sodium Chloride 1,000 mls @ 75 mls/hr 06/11/17 11:00 06/11/17 14:12 D5-Ns - IV 75 mls/hr ASDIR ANNA Administration Pantoprazole Sodium 40 mg 06/11/17 22:00 06/11/17 21:53 Protonix Iv IVPUSH 40 mg BID ANNA Administration CXR 06/10 - Impression: Large heart. Hiatal hernia. No acute chest pathology Ab u/s 06/10 - Borderline hepatic size. The remainder of the exam appears unremarkable. ASSESSMENT/PLAN: 57-year-old male with significant pmh of HTN, DM (non compliant), current smoker presented to the ED with complaints of shortness of breathing, fatigue of one week, in setting of melenic stool two weeks ago. #Microcytic anemia - suspected secondary to GI bleed; one week of fatigue; NSAID use, hx of PUD; FOBT neg on admission - H/H 4.2/16.5 MCV 49.9 on presentation - S/p 4 units PRBCs; Hgb 6.8 this AM; ordered for two more units per Dr. Choi - IV PPI gtt - IVFs - Flip tomorrow w/ Dr. Choi, as failed bowel prep overnight - Folate 20, low; Vit b12 normal - s/p vit K 5mg PO on 06/10 - No mike bleeding today - Bowel prep overnight; NPO after midnight - f/u iron studies - GI following #Elevated BNP - no evidence of volume overload; no hx of HF - f/u ECHO - trops neg #PSA - alcohol, cocaine; Abdominal u/s w/ hepatomegaly - U. tox positive for cocaine, alcohol level < 5 - Counseling for cessation - Elevated INR; possibly secondary to ETOH, liver dz #DM - no home meds - f/u A1C - BGM Q6h - ISS #HTN - started Norvasc 5mg, monitor BP #FEN D5-1/2NS 75cc/hr Daily BMPs NPO after midnight PPX SCDs PPI gtt Full Code Dispo to Med-surg Plan discussed with attending, Dr. Lee. Johnson Naranjo, PGY1 Visit type - Emergency Visit Emergency Visit: Yes ED Registration Date: 06/10/17 Care time: The patient presented to the Emergency Department on the above date and was hospitalized for further evaluation of their emergent condition. - New Patient This patient is new to me today: Yes Date on this admission: 06/13/17 - Critical Care Critical Care patient: No
[2017-06-12 07:11] LABS: BASO % 1.6 % (0-2.0); EOS % 3.1 % (0-4.5); HEMATOCRIT 23.6 % (35.4-49); LYMPH % 18.7 % (8-40); MCHC 28.7 g/dl (32.0-35.9); MONO % 10.5 % (3.8-10.2); NEUT % 66.1 % (42.8-82.8); PLATELET COUNT 302 K/MM3 (134-434); RBC 4.01 M/mm3 (4.00-5.60); RDW 34.1 % (11.9-15.9); WHITE BLOOD COUNT 6.9 K/mm3 (4.0-10.0)
[2017-06-12 07:39] LABS: ANION GAP 8 (8-16); BLOOD UREA NITROGEN 10 mg/dL (7-18); CALCIUM 7.7 mg/dL (8.5-10.1); CHLORIDE 106 mmol/L (98-107); CO2 24 mmol/L (21-32); CREATININE 0.9 mg/dL (0.7-1.3); GLUCOSE,RANDOM 82 mg/dL (74-106); POTASSIUM 3.8 mmol/L (3.5-5.1); SODIUM 138 mmol/L (136-145)
--- NOTE | 2017-06-12 08:06 | PN ---
Teaching Attending Note Name of Resident: Johnson Naranjo ATTENDING PHYSICIAN STATEMENT Time of evaluation: 12:15 PM I saw and evaluated the patient. I reviewed the resident's note and discussed the case with the resident. I agree with the resident's findings and plan as documented. SUBJECTIVE: Patient seen and examined. No new complaints, unable to finish bowel prep overnight. NO dark or bloody stools or dizziness, no new complaints. OBJECTIVE: Vital Signs Period Temp Pulse Resp BP Sys/Mac Pulse Ox Last 24 Hr 98.4 F-98.9 F 74-90 18-24 137-164/71-99 98-99 Intake & Output 06/09/17 06/10/17 06/11/17 06/12/17 23:59 23:59 23:59 23:59 Intake Total 1455 1822 1450 Output Total 650 Balance 805 1822 1450 Weight 260 lb 258 lb general: lying in bed in no acute distress abdomen: soft, obese, NT, positive bowel sounds Home Medication List Medication Instructions Recorded Confirmed Type NK [No Known Home Medication] 03/24/15 06/09/17 History Active Medications Generic Name Dose Route Start Last Admin Trade Name Davidq PRN Reason Stop Dose Admin Amlodipine Besylate 5 mg 06/11/17 10:00 06/11/17 09:13 Norvasc - PO 5 mg DAILY ANNA Administration Dextrose/Sodium Chloride 1,000 mls @ 75 mls/hr 06/11/17 11:00 06/11/17 14:12 D5-Ns - IV 75 mls/hr ASDIR ANNA Administration Pantoprazole Sodium 40 mg 06/11/17 22:00 06/11/17 21:53 Protonix Iv IVPUSH 40 mg BID ANNA Administration ASSESSMENT AND PLAN: 57 yom with DM, HTN, cocaine use, no recent follow up comes with severe symptomatic anemia and melena -Severe symptomatic anemia s/p 4 units pRBC so far, for additional 2 units today -h/o Melena, guaiac neg here, no gross evidence of bleed -Cocaine use -?ETOH use -Coagulopathy, ?ETOH related -DM -HTN Plan: s/p 4 units PRBC so far.Hb <7, plan for additional 2 units today per GI. No gross evidence of bleed or hemodynamic instability. Unable to finish prep. Plan for EGD/colonoscopy in AM. Change Protonix to 40 mg IV BID s/p Vitamin K 5 mg PO x 1 on 06/10. ETOH history with elevated INR,Abdominal US noted. ETOH cessation counseling. No s/s concerning for withdrawal. NPO past midnight. hemodyanmics stable. Monitor closely. h/o DM and HTN, not on meds. BGM q6h on D5WNS,follow up A1c Started amlodipine 5 mg daily, monitor BP. BNP elevated, but no clinical evidence of volume overload, VICENTE suspected from severe anemia. Follow up 2D echo and monitor. DVTPPx with SCDs Plan discussed with patient in detail, all questions answered.
[2017-06-12 08:15] LABS: MCH 16.9 pg (25.7-33.7)
[2017-06-12 08:21] LABS: HEMOGLOBIN 6.8 GM/dL (11.7-16.9)
[2017-06-12] MEDS: amLODIPine BESYLATE 5 MG TABLET (FP) PO SCH (09:17)
[2017-06-12] MEDS: PANTOPRAZOLE SODIUM 40 MG VIAL IVPUSH SCH ×2 (09:17→22:41)
[2017-06-12] MEDS ORDERED: BISACODYL 5 MG TABLET.DR (FP) PO ONE (10:18)
[2017-06-12] MEDS ORDERED: PEG 3350/NA SULF BICARB CL/KCL 4000 ML SOLN.RECON PO ONE (10:18)
--- NOTE | 2017-06-12 10:18 | PN ---
Progress Note, Physician Chief Complaint: No acute events overnight. Comfortable.No bleeding as reported by the patient and the overnight team. Drank only 1/3 of colon prep. Hgb 6.8 this am. - Current Medication List Current Medications: Active Medications Amlodipine Besylate (Norvasc -) 5 mg PO DAILY [facility] Last Admin: 06/12/17 09:17 Dose: 5 mg Dextrose/Sodium Chloride (D5-Ns -) 1,000 mls @ 75 mls/hr IV ASDIR [facility] Last Admin: 06/11/17 14:12 Dose: 75 mls/hr Pantoprazole Sodium (Protonix Iv) 40 mg IVPUSH BID [facility] Last Admin: 06/12/17 09:17 Dose: 40 mg - Objective Vital Signs: Vital Signs Temperature 98.4 F 06/12/17 05:00 Pulse Rate 74 06/12/17 05:00 Respiratory Rate 18 06/12/17 05:00 Blood Pressure 137/71 06/12/17 05:00 O2 Sat by Pulse Oximetry (%) 99 06/11/17 21:00 Constitutional: Yes: Well Nourished, No Distress, Calm Eyes: Yes: Conjunctiva Clear Cardiovascular: Yes: Regular Rate and Rhythm Respiratory: Yes: Regular Gastrointestinal: Yes: Soft. No: Distention, Melena, Rectal Bleeding, Tenderness, Tenderness, Epigastrium, Tenderness, Rebound, Vomiting Neurological: Yes: Alert, Oriented Labs: CBC, BMP 06/12/17 05:45 06/12/17 05:47 INR, PTT INR 1.50 (0.82-1.09) H 06/10/17 01:10 Laboratory Results - last 24 hr 06/10/17 06/11/17 06/11/17 01:50 21:30 23:16 WBC 7.1 RBC 4.37 Hgb 7.3 L D Hct 25.8 L D MCV 59.1 L D MCH 16.8 L MCHC 28.4 L RDW 34.9 H Plt Count 339 MPV 9.1 Neutrophils % 64.9 Lymphocytes % 17.7 Monocytes % 12.7 H Eosinophils % 3.5 Basophils % 1.2 Sodium Potassium Chloride Carbon Dioxide Anion Gap BUN Creatinine POC Glucometer 99 Random Glucose Calcium Blood Type O POSITIVE Antibody Screen Negative Crossmatch See Detail 06/12/17 06/12/17 06/12/17 05:25 05:45 05:47 WBC 6.9 RBC 4.01 Hgb 6.8 L* Hct 23.6 L MCV 59.0 L MCH 16.9 L MCHC 28.7 L RDW 34.1 H Plt Count 302 MPV 9.0 Neutrophils % 66.1 Lymphocytes % 18.7 Monocytes % 10.5 H Eosinophils % 3.1 Basophils % 1.6 Sodium 138 Potassium 3.8 Chloride 106 Carbon Dioxide 24 Anion Gap 8 BUN 10 D Creatinine 0.9 D POC Glucometer 108 Random Glucose 82 Calcium 7.7 L Blood Type Antibody Screen Crossmatch - ....Imaging Ultrasound: Report Reviewed Problem List - Problems (1) Microcytic hypochromic anemia Code(s): D50.9 - IRON DEFICIENCY ANEMIA, UNSPECIFIED (2) Anemia Code(s): D64.9 - ANEMIA, UNSPECIFIED (3) Dyspnea Code(s): R06.00 - DYSPNEA, UNSPECIFIED Assessment/Plan Significant microcytic, hypochromic anemia with no obvious external signs of GI bleeding. COntinue the prep and clear liquid diet today. Transfuse 2 u PRBC. Plan EGD and colonocpy in AM. CBC, CMP, PT, INR in am
[2017-06-12] MEDS: DEXTROSE 5%-NORMAL SALINE 1,000 ML IV SCH (12:44)
--- NOTE | 2017-06-13 05:25 | PN ---
Physical Exam: SUBJECTIVE: Patient seen and examined by me this AM - Plan for Lei w/ Dr. Choi today OBJECTIVE: Vital Signs Intake & Output 06/10/17 06/11/17 06/12/17 06/13/17 23:59 23:59 23:59 23:59 Intake Total 1455 1822 2090 Output Total 650 Balance 805 1822 2090 Weight 117.027 kg Period Temp Pulse Resp BP Sys/Mac Pulse Ox Last 24 Hr 98.5 F-98.8 F 80-83 19-20 144-155/87-100 99 GENERAL: The patient is awake, alert, and fully oriented, in no acute distress. Laying comfortably in bed. HEAD: Normal with no signs of trauma. EYES: PERRL, extraocular movements intact, sclera anicteric, conjunctiva clear. No ptosis. ENT: Ears normal, nares patent, oropharynx clear without exudates, moist mucous membranes. NECK: Trachea midline, full range of motion, supple. LUNGS: Expiratory rhonchi in upper airway. Otherwise, clear to auscultation bilaterally, no wheezes, no crackles, no accessory muscle use. HEART: Regular rate and rhythm, S1, S2 without murmur, rub or gallop. ABDOMEN: Soft, nontender, nondistended, normoactive bowel sounds, no guarding, no rebound, no hepatosplenomegaly, no masses. EXTREMITIES: 2+ pulses, warm, well-perfused. 1+ LE edema. NEUROLOGICAL: Cranial nerves II through XII grossly intact. Normal speech, gait not observed. PSYCH: Normal mood, normal affect. SKIN: Warm, dry, normal turgor, no rashes or lesions noted Laboratory Results - last 24 hr CBC, BMP 06/13/17 06:30 06/13/17 06:30 06/12/17 05:45 06/12/17 05:47 06/10/17 06/10/17 06/12/17 01:50 01:54 05:25 WBC RBC Hgb Hct MCV MCH MCHC RDW Plt Count MPV Neutrophils % Lymphocytes % Monocytes % Eosinophils % Basophils % Sodium Potassium Chloride Carbon Dioxide Anion Gap BUN Creatinine POC Glucometer 108 Random Glucose Calcium Blood Type O POSITIVE Antibody Screen Negative Crossmatch See Detail See Detail 06/12/17 06/12/17 05:45 05:47 WBC 6.9 RBC 4.01 Hgb 6.8 L* Hct 23.6 L MCV 59.0 L MCH 16.9 L MCHC 28.7 L RDW 34.1 H Plt Count 302 MPV 9.0 Neutrophils % 66.1 Lymphocytes % 18.7 Monocytes % 10.5 H Eosinophils % 3.1 Basophils % 1.6 Sodium 138 Potassium 3.8 Chloride 106 Carbon Dioxide 24 Anion Gap 8 BUN 10 D Creatinine 0.9 D POC Glucometer Random Glucose 82 Calcium 7.7 L Blood Type Antibody Screen Crossmatch Active Medications Generic Name Dose Route Start Last Admin Trade Name Naveen PRN Reason Stop Dose Admin Amlodipine Besylate 5 mg 06/11/17 10:00 06/12/17 09:17 Norvasc - PO 5 mg DAILY ANNA Administration Dextrose/Sodium Chloride 1,000 mls @ 75 mls/hr 06/11/17 11:00 06/12/17 12:44 D5-Ns - IV 75 mls/hr ASDIR ANNA Administration Pantoprazole Sodium 40 mg 06/11/17 22:00 06/12/17 22:41 Protonix Iv IVPUSH 40 mg BID ANNA Administration No micro CXR 06/10 - Impression: Large heart. Hiatal hernia. No acute chest pathology Ab u/s 06/10 - Borderline hepatic size. The remainder of the exam appears unremarkable. ASSESSMENT/PLAN: 57-year-old male with significant pmh of HTN, DM (non compliant), current smoker presented to the ED with complaints of shortness of breathing, fatigue of one week, in setting of melenic stool two weeks ago. #Microcytic anemia - suspected secondary to GI bleed; one week of fatigue; NSAID use, hx of PUD; FOBT neg on admission - H/H 4.2/16.5 MCV 49.9 on presentation - S/p 4 units PRBCs; Hgb 6.8 this AM; ordered for two more units per Dr. Choi - IV PPI gtt - IVFs - Flip tomorrow w/ Dr. Choi, as failed bowel prep overnight - Folate 20, low; Vit b12 normal - s/p vit K 5mg PO on 06/10 - No mike bleeding today - Bowel prep overnight; NPO after midnight - f/u iron studies - GI following #Elevated BNP - no evidence of volume overload; no hx of HF - f/u ECHO - trops neg #PSA - alcohol, cocaine; Abdominal u/s w/ hepatomegaly - U. tox positive for cocaine, alcohol level < 5 - Counseling for cessation - Elevated INR; possibly secondary to ETOH, liver dz #DM - no home meds - f/u A1C - BGM Q6h - ISS #HTN - started Norvasc 5mg, monitor BP #FEN D5-1/2NS 75cc/hr Daily BMPs NPO after midnight PPX SCDs PPI gtt Full Code Dispo to Med-surg Plan discussed with attending, Dr. Lee. Johnson Naranjo, PGY1
[2017-06-13 07:32] LABS: BASO % 1.3 % (0-2.0); EOS % 3.6 % (0-4.5); HEMATOCRIT 27.2 % (35.4-49); HEMOGLOBIN 8.2 GM/dL (11.7-16.9); LYMPH % 17.4 % (8-40); MCHC 30.2 g/dl (32.0-35.9); MEAN CELL VOLUME 62.6 fl (80-96); MEAN PLT VOLUME 9.3 fl (7.5-11.1); MONO % 9.9 % (3.8-10.2); NEUT % 67.8 % (42.8-82.8); PLATELET COUNT 320 K/MM3 (134-434); RBC 4.35 M/mm3 (4.00-5.60); WHITE BLOOD COUNT 7.4 K/mm3 (4.0-10.0)
[2017-06-13 07:59] LABS: ALBUMIN 3.2 g/dl (3.4-5.0); ALK PHOS 80 U/L (45-117); ANION GAP 9 (8-16); BLOOD UREA NITROGEN 7 mg/dL (7-18); CALCIUM 8.1 mg/dL (8.5-10.1); CHLORIDE 105 mmol/L (98-107); CO2 25 mmol/L (21-32); CREATININE 0.9 mg/dL (0.7-1.3); GLUCOSE,RANDOM 77 mg/dL (74-106); POTASSIUM 3.9 mmol/L (3.5-5.1); SGOT/AST 17 U/L (15-37); SGPT/ALT 45 U/L (12-78); SODIUM 139 mmol/L (136-145); TOT PROT 7.2 g/dl (6.4-8.2)
[2017-06-13 08:14] LABS: MCH 18.9 pg (25.7-33.7)
[2017-06-13 08:35] LABS: INR 1.29 (0.82-1.09); PROTHROMBIN TIME (PATIENT) 14.6 SEC (9.98-11.88)
--- NOTE | 2017-06-13 10:19 | PROC ---
Endoscopy Procedure Endoscopy procedure completed. Please see scanned procedure report. erosive gastritis mild diverticulosis of the left colon internal hemorrhoids follow biopsies in 1 week in office high fiber diet avoid NSAIDs
[2017-06-13] MEDS: amLODIPine BESYLATE 5 MG TABLET (FP) PO SCH (11:56)
--- NOTE | 2017-06-13 13:44 | PN ---
Teaching Attending Note Name of Resident: Johnson Naranjo ATTENDING PHYSICIAN STATEMENT I saw and evaluated the patient. I reviewed the resident's note and discussed the case with the resident. I agree with the resident's findings and plan as documented. SUBJECTIVE:asymptomatic. requesting to go home. denies Cp, SOB, fever, chills, N /V/C/D, hemetemsis, melena or BRBPR OBJECTIVE: Last Vital Signs Temp Pulse Resp BP Pulse Ox 99.1 F 78 18 151/82 98 06/13/17 10:08 06/13/17 10:38 06/13/17 10:38 06/13/17 10:38 06/13/17 10:38 General NAD CV S1 S2 RRR no murmur/rub/gallop Lungs CTA B/L no wheezing/rales/rhonchi Abdomen soft NT/ND ASSESSMENT AND PLAN: 57 yo M with DM, HTN, cocaine use, no recent follow up comes with severe symptomatic anemia and melena 1. Severe symptomatic anemia - s/p 6 units PRBC this admission. underwent EGD/ Colonoscopy showing severe erosive gastrititis and mild diverticulosis. tolerating diet. will repeat to ensure hgb is stable. start ppi. advised dietary changes. will need to f/u with GI as outpatient to f/u bx 2. Coagulopathic- likley due to ETOH consumption. s/p vitamin K x3. improved 3. continious polysubstance dependence- ETOH and cocaine. advised importance of Drug abstinence. as this can worsen medical condition and increase bleeding. verbalized understanding 4. iron deficiency anemia- start iron supplements. repeat iron studies. counselled side effects of constipation and black stools. 5. hx of DM- A1c 5.4. not on medications. no indication for medications 6. HTN- controlled. cont norvasc. avoid betablockers 7. d/c planning home after repeat hgb is stable.
[2017-06-13 13:51] LABS: HEMATOCRIT 29.9 % (35.4-49); HEMOGLOBIN 8.9 GM/dL (11.7-16.9); MCHC 29.9 g/dl (32.0-35.9); MEAN PLT VOLUME 9.4 fl (7.5-11.1); PLATELET COUNT 323 K/MM3 (134-434); RBC 4.74 M/mm3 (4.00-5.60); RDW 36.4 % (11.9-15.9); WHITE BLOOD COUNT 10.4 K/mm3 (4.0-10.0)
[2017-06-13 13:54] LABS: MCH 18.9 pg (25.7-33.7)
[2017-06-13] MEDS: DEXTROSE 5%-NORMAL SALINE 1,000 ML IV SCH (15:30)
[2017-06-13 15:46] VITALS: BP 148/96; PULSE 92; TEMP 97.8
--- NOTE | 2017-06-13 15:54 | DS ---
Physical Exam: SUBJECTIVE: Patient seen and examined by me this AM - No major events overnight. No SOB or respiratory distress, breathing well. Denies JEFFERY/dizziness, fever/chills, CP, SOB, VICENTE, cough, N/V, abdominal pain, dysuria, melena, hematochezia, peripheral weakness/numbness. Anxious to go home. - Pt completed bowel regimen overnight. Went for EGD/colonoscopy w/ Dr. Choi this AM. OBJECTIVE: Vital Signs Intake & Output 06/10/17 06/11/17 06/12/17 06/13/17 23:59 23:59 23:59 23:59 Intake Total 1455 1822 2090 1075 Output Total 650 Balance 805 1822 2090 1075 Weight 117.027 kg Period Temp Pulse Resp BP Sys/Mac Pulse Ox Last 24 Hr 97.8 F-99.1 F 78-92 18-22 143-155/73-100 98-100 PHYSICAL EXAM GENERAL: The patient is awake, alert, and fully oriented, in no acute distress. Laying comfortably in bed. HEAD: Normal with no signs of trauma. EYES: PERRL, extraocular movements intact, sclera anicteric, conjunctiva clear. No ptosis. ENT: Ears normal, nares patent, oropharynx clear without exudates, moist mucous membranes. NECK: Trachea midline, full range of motion, supple. LUNGS: Mild expiratory rhonchi in upper airway BL. Otherwise, clear to auscultation bilaterally, no wheezes, no crackles, no accessory muscle use. HEART: Regular rate and rhythm, S1, S2 without murmur, rub or gallop. ABDOMEN: Soft, nontender, nondistended, normoactive bowel sounds, no guarding, no rebound, no hepatosplenomegaly, no masses. EXTREMITIES: 2+ pulses, warm, well-perfused. Trace BL LE nonpitting edema. NEUROLOGICAL: Cranial nerves II through XII grossly intact. Normal speech, gait not observed. PSYCH: Normal mood, normal affect. SKIN: Warm, dry, normal turgor, no rashes or lesions noted LABS Laboratory Results - last 24 hr CBC, BMP 06/13/17 13:29 06/13/17 06:30 06/10/17 06/10/17 06/13/17 01:50 15:00 06:30 WBC 7.4 RBC 4.35 Hgb 8.2 L D Hct 27.2 L D MCV 62.6 L D MCH 18.9 L MCHC 30.2 L RDW 36.0 H Plt Count 320 MPV 9.3 Neutrophils % 67.8 Lymphocytes % 17.4 Monocytes % 9.9 Eosinophils % 3.6 Basophils % 1.3 PT with INR INR Sodium Potassium Chloride Carbon Dioxide Anion Gap BUN Creatinine Creat Clearance w eGFR POC Glucometer Random Glucose Hemoglobin A1c % 5.4 Calcium Ferritin Total Bilirubin AST ALT Alkaline Phosphatase Total Protein Albumin Blood Type O POSITIVE Antibody Screen Negative Crossmatch See Detail 06/13/17 06/13/17 06/13/17 06:30 06:30 06:42 WBC RBC Hgb Hct MCV MCH MCHC RDW Plt Count MPV Neutrophils % Lymphocytes % Monocytes % Eosinophils % Basophils % PT with INR 14.60 H INR 1.29 H Sodium 139 Potassium 3.9 Chloride 105 Carbon Dioxide 25 Anion Gap 9 BUN 7 D Creatinine 0.9 Creat Clearance w eGFR > 60 POC Glucometer 108 Random Glucose 77 Hemoglobin A1c % Calcium 8.1 L Ferritin 10.088 L Total Bilirubin 1.0 D AST 17 D ALT 45 D Alkaline Phosphatase 80 D Total Protein 7.2 Albumin 3.2 L Blood Type Antibody Screen Crossmatch 06/13/17 13:29 WBC 10.4 H D RBC 4.74 Hgb 8.9 L Hct 29.9 L MCV 63.0 L MCH 18.9 L MCHC 29.9 L RDW 36.4 H Plt Count 323 MPV 9.4 Neutrophils % Lymphocytes % Monocytes % Eosinophils % Basophils % PT with INR INR Sodium Potassium Chloride Carbon Dioxide Anion Gap BUN Creatinine Creat Clearance w eGFR POC Glucometer Random Glucose Hemoglobin A1c % Calcium Ferritin Total Bilirubin AST ALT Alkaline Phosphatase Total Protein Albumin Blood Type Antibody Screen Crossmatch No micro EKG 06/10 - NSR, Rate 90, QTC 450, no ST/tw changes Echo 06/13 - EF 64%, mild concentric LVH, moderate MR, moderate TR, LA dilatation CXR 06/10 - Impression: Large heart. Hiatal hernia. No acute chest pathology Ab u/s 06/10 - Borderline hepatic size. The remainder of the exam appears unremarkable. HOSPITAL COURSE: 57 yo w/ pmh of HTN, DM (noncompliant), PUD, and nicotine abuse who presented with one week of progressive fatigue, SOB, in the setting of recent melenic stools two weeks prior to admission. Labs on admission notable for Hgb 4.2, MCV 49.9, w/ utox positive for cocaine. Pt transfused 4 units over the next 24 hours w/ f/u hgb of 7.3, started on protonix gtt and GI was consulted for suspected GI bleed. Pt also given 5mg Vit K PO on 06/10 and f/u labs notable for low folate () and iron studies suggestive of iron deficiency. FOBT negative during admission. RUQ U/S 06/10 notable only for hepatomegaly and CXR 06/10 only for cardiomegaly. Pt scheduled for EGD/Colonoscopy on 06/[address] Choi, however failed to complete bowel prep. Hgb 6.9 on 06/10; pt ordered for 2 additional units pRBCS and EGD/colonoscopy performed on 06/13. Results notable for erosive gastritis, mild diverticulosis, internal hemorrhoids, and multiple bxs taken. Pt planned for outpt follow-up with Dr. Choi in one week and discharged on protonix PO, iron supplements and Norvasc 5mg for HTN, as pt noncompliant with PCP and required HTN meds. Hgb on discharge 8.2. No other active acute medical issues note. Pt with no further episodes of hematochezia or melena on discharge Date of Admission:06/10/17 Date of Discharge: 06/13/17 Consults: GI - Seen by Dr. Choi Plan on discharge per GI: follow biopsies in 1 week in office high fiber diet avoid NSAIDs Pt medically stable and ready for discharge, with outpt f/u w/ Dr. Choi in one week to discussed colonoscopy/EGD results and referral for new PCP w/ Dr. Pratt in resident clinic. Minutes to complete discharge: 35 Discharge Summary Reason For Visit: ANEMIA; FATIGUE; DYSPNEA Current Active Problems Anemia (Acute) Dyspnea (Acute) Fatigue (Acute) Microcytic hypochromic anemia (Acute) Condition: Guarded - Instructions Diet, Activity, Other Instructions: During your stay at [facility], you were treated for an acute GI bleed. Meds: Please continue taking your home medications as they were previously prescribed. Avoid taking NSAID products for pain. (ibuprofen, aleive, motrin, naproxen, etc) Avoid drinking alcohol as this can worsen your gastritis and cause you to bleed. You were started on the following medications during your admission at [facility]. Please take them as directed below: Iron sulfate 325mg, one pill by mouth, once a day Pantoprazole (protonix) 40mg, one pill by mouth, once a day Follow-ups: Please follow-up with Dr. Choi as an outpatient in his clinic within one week. Please call to schedule an appointment. His contact information has been provided. During you stay, you expressed wishes for referral for a new primary care provider. We have provided a referral for our outpatient clinic with Dr. Pratt. Contact information for the clinic has been provided in this packet. Please call to schedule an appointment within one week. Please repeat iron study labs to check your blood iron levels in three months. Please bring this to the attention of your primary care provider or Dr. Pratt. Diet: Please adhere to a diet high in fiber per the recommendations of Dr. Choi. In order to decrease the chance of further worsening of your gastritis, please abide by the following additional dietary recommendations. Foods that are high in fat may worsen inflammation in the lining of the stomach. Some other foods to avoid because they can irritate the stomach are: alcohol coffee acidic foods like tomatoes and some fruits fruit juice fatty foods fried foods carbonated drinks spicy foods allergenic or symptomatic foods Based on the results of your GI procedure (colonoscopy/endoscopy), you have been diagnosed with erosive gastritis, mild diverticulosis of the left colon and internal hemorrhoids, which are the likely cause of your GI bleed. Biopsy samples were taken during this procedure. Please follow-up on these results with Dr. Choi. Referrals: Joel Pratt MD [Staff Physician] - 1 Week Albert Choi MD [Staff Physician] - 1 Week Disposition: HOME - Home Medications Comprehensive Discharge Medication List: Ambulatory Orders Amlodipine Besylate [Norvasc -] 5 mg PO DAILY #30 tablet 06/13/17 Ferrous Sulfate [Feosol] 325 mg PO DAILY #30 ud 06/13/17 Pantoprazole Sodium [Protonix -] 40 mg PO DAILY #30 tablet.ec 06/13/17 This patient is new to me today: No Emergency Visit: Yes ED Registration Date: 06/10/17 Care time: The patient presented to the Emergency Department on the above date and was hospitalized for further evaluation of their emergent condition. Critical Care patient: No - Discharge Referral Referred to [facility] Med P.C.: No
[2017-06-14 08:09] LABS: SERUM IRON SATURATION 6 % (15-55); TOTAL IRON BINDING CAPACITY 309 ug/dL (250-450); UIBC 289 ug/dL (111-343)
[2017-06-14] MEDS ORDERED: PANTOPRAZOLE 40 MG TABLET (FP) PO SCH (10:00)
[2017-06-14] MEDS ORDERED: FERROUS SO4 325 MG TABLET (FP) PO SCH (10:00)
--- NOTE | 2017-06-14 13:39 | PATH ---
Surgical Pathology Report Patient Name: ROBBIE POTTER Med. Rec. #: [id number] /Age/Gender: 1960 (Age: 57) / M Account: [id number] Location: 4 W TELEMETRY U Taken: 06/13/2017 Received: 06/13/2017 Reported: 06/14/2017 Physicians: Grant Cotter M.D. Specimen(s) Received A: BX DUODENUM SECOND PORTION B: BX ANTRUM AND BODY Clinical History Preoperative diagnosis: GI bleeding Postoperative diagnosis: Erosive gastritis, diverticulosis Final Diagnosis A. DUODENUM, SECOND PORTION, BIOPSY: DUODENAL MUCOSA WITHOUT SIGNIFICANT PATHOLOGIC FINDINGS. B. STOMACH, ANTRUM AND BODY, BIOPSY: GASTRIC ANTRAL AND BODY MUCOSA WITH MODERATE CHRONIC FOCAL ACTIVE GASTRITIS. IMMUNOHISTOCHEMICAL STAIN FOR H. PYLORI IS NEGATIVE. Electronically Signed Mile Olivia M.D. Gross Description A. Received in formalin, labeled "biopsy second portion of duodenum" are 2 villalba, irregular portions of soft tissue averaging 0.3 cm. in greatest dimension. The specimens are submitted in toto in one cassette. B. Received in formalin, labeled "biopsy antrum and body" are 2 villalba, irregular portions of soft tissue measuring 0.3 and 0.5 cm. in greatest dimension. The specimens are submitted in toto in one cassette. 06/13/201706/13/2017
== END 2017-06-13 16:59 | disposition home or self-care (01) | DRG 812 ==
LOC: JER 20:35 → JERBED 06-10 08:10 → J4W 06-11 02:29
PROVIDERS: ADMIT Hospitalist; ATTEND Internal Medicine
PROC: 30233N1 Transfusion of Nonautologous Red Blood Cells into Peripheral Vein, Percutaneous Approach (ICD-10-PCS; 2017-06-10)
PROC: 0DB68ZX Excision of Stomach, Via Natural or Artificial Opening Endoscopic, Diagnostic (ICD-10-PCS; 2017-06-13)
PROC: 0DJD8ZZ Inspection of Lower Intestinal Tract, Via Natural or Artificial Opening Endoscopic (ICD-10-PCS; 2017-06-13)
PROC: 0DB98ZX Excision of Duodenum, Via Natural or Artificial Opening Endoscopic, Diagnostic (ICD-10-PCS; principal; 2017-06-13 09:45)
DX: D50.9 Iron deficiency anemia, unspecified (principal); F14.20 Cocaine dependence, uncomplicated; D68.9 Coagulation defect, unspecified; E11.9 Type 2 diabetes mellitus without complications; I10 Essential (primary) hypertension; Z91.14 Patient's other noncompliance with medication regimen; Z87.891 Personal history of nicotine dependence; R16.0 Hepatomegaly, not elsewhere classified; R06.00 Dyspnea, unspecified; K29.60 Other gastritis without bleeding; K64.8 Other hemorrhoids; F10.20 Alcohol dependence, uncomplicated; K57.30 Diverticulosis of large intestine without perforation or abscess without bleeding
CPT/HCPCS: 36415; 36430; 36511; 71046-TC; 76705-TC; 80048; 80053; 80061; 80307; 81003; 82272; 82550; 82607; 82728; 82746; 82962; 83036; 83540; 83550; 83690; 83721; 83880; 84484; 85025; 85027; 85610; 86850; 86900; 86901; 86922; 93005; 93010; 93306-TC; 99285-25; P9038; P9058

== ENCOUNTER 2020-09-04 19:26 | Emergency (ER) | payer OTHER, BC ==
[2020-09-04 19:37] VITALS: BP 153/85; PULSE 79; TEMP 97.5; BMI 43.0
== END 2020-09-04 21:20 | disposition left against medical advice (07) ==
LOC: JER 19:26 → JERFT 19:26 → JER 23:11
DX: M54.2 Cervicalgia (principal); M54.5 Low back pain
CPT/HCPCS: 99281-25

== ENCOUNTER 2021-10-29 12:50 | Observation (INO) | payer BC, OTHER ==
[2021-10-29 13:57] LABS: BASO % 0.8 % (0-2.0); EOS % 5.9 % (0-4.5); HEMATOCRIT 44.5 % (35.4-49); HEMOGLOBIN 14.7 GM/dL (11.7-16.9); LYMPH % 15.6 % (8-40); MCH 27.5 pg (25.7-33.7); MCHC 32.9 g/dl (32.0-35.9); MEAN CELL VOLUME 83.6 fl (80-96); MEAN PLT VOLUME 8.7 fl (7.5-11.1); MONO % 5.6 % (3.8-10.2); NEUT % 72.1 % (42.8-82.8); PLATELET COUNT 369 10^3/uL (134-434); RBC 5.32 M/mm3 (4.00-5.60); RDW 13.8 % (11.9-15.9); WHITE BLOOD COUNT 10.6 K/mm3 (4.0-10.0)
[2021-10-29] MEDS ORDERED: THIAMINE HCL 200 MG/2 ML VIAL IVPB ONE (13:57)
[2021-10-29 14:02] LABS: VENOUS BASE EXCESS 0.3 mmol/L (-2-2); VENOUS O2 SATURATION 95.1 % (70-80); VENOUS PCO2 41.6 mmHg (38-52); VENOUS PH 7.4 (7.310-7.410)
[2021-10-29 14:07] LABS: INR 1.02 (0.83-1.09); PROTHROMBIN TIME (PATIENT) 11.7 SEC (9.7-13.0)
[2021-10-29 14:09] LABS: ACTIVATED PTT 31.1 SECONDS (25.2-36.5)
[2021-10-29 14:26] LABS: CHLORIDE 98 mmol/L (98-107); MAGNESIUM 1.9 mg/dL (1.8-2.4); SODIUM 134 mmol/L (136-145)
[2021-10-29 14:29] LABS: ANION GAP 12 MMOL/L (8-16); CALCIUM 9.9 mg/dL (8.5-10.1); CO2 24 mmol/L (21-32)
[2021-10-29 14:30] LABS: ALBUMIN 3.5 g/dl (3.4-5.0); BLOOD UREA NITROGEN 12.4 mg/dL (7-18)
[2021-10-29 14:32] LABS: SGOT/AST 17 U/L (15-37); SGPT/ALT 29 U/L (13-61)
[2021-10-29 14:33] LABS: CREATININE 1.1 mg/dL (0.55-1.3)
[2021-10-29 14:34] LABS: CHOLESTEROL 155 mg/dL (50-200); TOT PROT 8.1 g/dl (6.4-8.2); TRIGLYCERIDES 280 mg/dL (0-150)
[2021-10-29 14:35] LABS: BILIRUBIN,TOTAL 0.5 mg/dL (0.2-1); LDL CHOLESTEROL (ONLY SJRH) 76 mg/dL (5-100)
[2021-10-29 14:36] LABS: ALK PHOS 90 U/L (45-117)
[2021-10-29 14:37] LABS: HDL CHOLESTEROL 39 mg/dL (40-60)
[2021-10-29 14:38] LABS: GLUCOSE,RANDOM 460 mg/dL (74-106)
[2021-10-29] MEDS ORDERED: THIAMINE HCL 200 MG/2 ML VIAL ONE (14:48)
[2021-10-29] MEDS: SODIUM CHLORIDE 1,000 ML IV SCH (15:06)
[2021-10-29] MEDS ORDERED: METOCLOPRAMIDE HCL INJECTION 10 MG/2 ML VIAL IVPUSH ONE (15:22)
[2021-10-29] MEDS ORDERED: MECLIZINE HCL 25 MG TABLET (FP) PO ONE (15:22)
[2021-10-29] MEDS ORDERED: ASPIRIN 325 MG ENTERIC COATED TABLET (FP) PO ONE (15:42)
[2021-10-29 15:47] LABS: URINE APPEARANCE CLEAR; URINE BILIRUBIN NEGATIVE (NEGATIVE); URINE COLOR YELLOW; URINE GLUCOSE (UA) 4+ (NEGATIVE); URINE KETONE NEGATIVE (NEGATIVE)
[2021-10-29 15:48] LABS: EPI CELLS 1 /uL (0-25.1); HYALINE CASTS 0 /uL (0-3.1); URINE BACTERIA 3 /uL (0-1359); URINE LEUK ESTERASE NEGATIVE (NEGATIVE); URINE NITRITE NEGATIVE (NEGATIVE); URINE PROTEIN NEGATIVE (NEGATIVE); URINE RBC 3 /uL (0-23.9); URINE UROBILINOGEN 0.2 mg/dL (0.2-1.0); URINE WBC 2 /uL (0-25.8)
[2021-10-29] MEDS ORDERED: ASPIRIN 325 MG ENTERIC COATED TABLET (FP) ONE (16:12)
[2021-10-29] MEDS ORDERED: METOCLOPRAMIDE HCL INJECTION 10 MG/2 ML VIAL ONE (16:12)
[2021-10-29] MEDS ORDERED: MECLIZINE HCL 25 MG TABLET (FP) ONE (16:12)
[2021-10-29 17:17] LABS: COCAINE, UR POSITIVE (NEGATIVE); METHADONE, UR NEGATIVE (NEGATIVE); OPIATES, URI NEGATIVE (NEGATIVE); PHENCYCLIDINE,URINE NEGATIVE (NEGATIVE); URINE AMPHETAMINES NEGATIVE (NEGATIVE); URINE BARBITURATES NEGATIVE (NEGATIVE); URINE BENZODIAZEPINES NEGATIVE (NEGATIVE)
[2021-10-29] MEDS: ENOXAPARIN NA (PORCINE) 40 MG/0.4 ML DISP.SYRIN SQ SCH (18:11)
[2021-10-29] MEDS ORDERED: INSULIN REGULAR HUMAN 100 UNITS/ML *VIAL IVPUSH ONE (18:42)
[2021-10-29] MEDS ORDERED: LORazepam 1 MG TABLET PO PRN (18:44)
[2021-10-29] MEDS: INSULIN SLIDING SCALE (NOVOLOG) 1 VIAL SQ SCH (21:31)
[2021-10-30 01:28] VITALS: BMI 39.0
[2021-10-30] MEDS: INSULIN SLIDING SCALE (NOVOLOG) 1 VIAL SQ SCH ×4 (06:05→22:07)
[2021-10-30 06:58] LABS: EOS % 8.2 % (0-4.5); HEMATOCRIT 39.8 % (35.4-49); HEMOGLOBIN 13.3 GM/dL (11.7-16.9); LYMPH % 21.1 % (8-40); MCH 27.8 pg (25.7-33.7); MCHC 33.5 g/dl (32.0-35.9); MEAN CELL VOLUME 83.2 fl (80-96); MONO % 6.8 % (3.8-10.2); NEUT % 62.9 % (42.8-82.8); PLATELET COUNT 327 10^3/uL (134-434); RBC 4.78 M/mm3 (4.00-5.60); RDW 14.2 % (11.9-15.9); WHITE BLOOD COUNT 8.9 K/mm3 (4.0-10.0)
[2021-10-30 07:16] LABS: INR 0.97 (0.83-1.09); PROTHROMBIN TIME (PATIENT) 11.2 SEC (9.7-13.0)
[2021-10-30 07:18] LABS: ACTIVATED PTT 28.7 SECONDS (25.2-36.5)
[2021-10-30 07:24] LABS: CALCIUM 9.3 mg/dL (8.5-10.1)
[2021-10-30 07:25] LABS: ALBUMIN 3.2 g/dl (3.4-5.0); BLOOD UREA NITROGEN 13.3 mg/dL (7-18); MAGNESIUM 1.9 mg/dL (1.8-2.4)
[2021-10-30 07:29] LABS: BILIRUBIN,TOTAL 0.4 mg/dL (0.2-1)
[2021-10-30 07:30] LABS: TOT PROT 7.4 g/dl (6.4-8.2)
[2021-10-30] MEDS: THIAMINE HCL 200 MG/2 ML VIAL IVPB SCH (09:41)
[2021-10-30] MEDS: ENOXAPARIN NA (PORCINE) 40 MG/0.4 ML DISP.SYRIN SQ SCH (09:41)
[2021-10-30] MEDS: FOLIC ACID 1 MG TABLET (FP) PO SCH (09:41)
[2021-10-30] MEDS: SODIUM CHLORIDE 1,000 ML IV SCH (22:10)
[2021-10-31] MEDS: INSULIN SLIDING SCALE (NOVOLOG) 1 VIAL SQ SCH ×4 (06:14→21:52)
[2021-10-31] MEDS: FOLIC ACID 1 MG TABLET (FP) PO SCH (10:06)
[2021-10-31] MEDS: ENOXAPARIN NA (PORCINE) 40 MG/0.4 ML DISP.SYRIN SQ SCH ×2 (10:06→10:08)
[2021-10-31] MEDS: THIAMINE HCL 200 MG/2 ML VIAL IVPB SCH (10:06)
[2021-10-31] MEDS ORDERED: INSULIN (LEVEMIR) 100 UNITS/ML UNITS SQ SCH (11:00)
[2021-10-31] MEDS: DOCUSATE SODIUM 100 MG CAPSULE (FP) PO SCH ×2 (13:19→21:51)
[2021-10-31] MEDS: INSULIN (LEVEMIR) 100 UNITS/ML UNITS SQ SCH (21:53)
[2021-11-01] MEDS ORDERED: LORazepam 0.5 MG TABLET PO PRN
[2021-11-01] MEDS: metFORMIN HCL 500 MG TABLET (FP) PO SCH ×2 (06:23→17:14)
[2021-11-01] MEDS: INSULIN (LEVEMIR) 100 UNITS/ML UNITS SQ SCH (06:24)
[2021-11-01] MEDS: INSULIN SLIDING SCALE (NOVOLOG) 1 VIAL SQ SCH ×3 (06:24→17:15)
[2021-11-01] MEDS: DOCUSATE SODIUM 100 MG CAPSULE (FP) PO SCH ×2 (06:25→15:09)
[2021-11-01 07:45] LABS: HEMATOCRIT 42.1 % (35.4-49); MCH 27.8 pg (25.7-33.7); MCHC 33.2 g/dl (32.0-35.9); MEAN CELL VOLUME 83.8 fl (80-96); MEAN PLT VOLUME 9.4 fl (7.5-11.1); PLATELET COUNT 285 10^3/uL (134-434); RBC 5.02 M/mm3 (4.00-5.60); RDW 14.2 % (11.9-15.9)
[2021-11-01 08:12] LABS: CALCIUM 9.1 mg/dL (8.5-10.1)
[2021-11-01 08:13] LABS: BLOOD UREA NITROGEN 11.4 mg/dL (7-18)
[2021-11-01 08:16] LABS: CREATININE 0.8 mg/dL (0.55-1.3)
[2021-11-01] MEDS: ENOXAPARIN NA (PORCINE) 40 MG/0.4 ML DISP.SYRIN SQ SCH ×2 (09:43→09:49)
[2021-11-01] MEDS: THIAMINE HCL 200 MG/2 ML VIAL IVPB SCH (09:43)
[2021-11-01] MEDS: FOLIC ACID 1 MG TABLET (FP) PO SCH (09:43)
[2021-11-01 15:18] VITALS: BP 149/70; PULSE 90; TEMP 98
== END 2021-11-01 18:02 | disposition home or self-care (01) ==
LOC: JER 12:50 → JERBED 15:10 → J4W 23:17
PROVIDERS: ADMIT Internal Medicine; ATTEND Internal Medicine
PROC: 3E013VG Introduction of Insulin into Subcutaneous Tissue, Percutaneous Approach (ICD-10-PCS; principal; 2021-10-29)
PROC: 3E033VG Introduction of Insulin into Peripheral Vein, Percutaneous Approach (ICD-10-PCS; 2021-10-29)
PROC: 3E0337Z Introduction of Electrolytic and Water Balance Substance into Peripheral Vein, Percutaneous Approach (ICD-10-PCS; 2021-10-29)
PROC: 3E033GC Introduction of Other Therapeutic Substance into Peripheral Vein, Percutaneous Approach (ICD-10-PCS; 2021-10-29)
DX: E11.65 Type 2 diabetes mellitus with hyperglycemia (principal); I25.10 Atherosclerotic heart disease of native coronary artery without angina pectoris; E66.9 Obesity, unspecified; Z68.39 Body mass index [BMI] 39.0-39.9, adult; F10.10 Alcohol abuse, uncomplicated; M19.90 Unspecified osteoarthritis, unspecified site; R50.9 Fever, unspecified; R20.2 Paresthesia of skin; R42 Dizziness and giddiness; Z72.0 Tobacco use; R06.00 Dyspnea, unspecified; R53.83 Other fatigue; T40.601A Poisoning by unspecified narcotics, accidental (unintentional), initial encounter; R35.0 Frequency of micturition; R63.1 Polydipsia; D64.9 Anemia, unspecified; H04.302 Unspecified dacryocystitis of left lacrimal passage; E78.00 Pure hypercholesterolemia, unspecified
CPT/HCPCS: 0241U-QW; 36415; 70450-TC; 70496-TC; 70498-TC; 70551-TC; 80048; 80053; 80061; 80307; 81003; 82010; 82550; 82803; 82962; 83036; 83605; 83735; 84100; 84443; 84484; 85025; 85027; 85610; 85730; 86850; 86900; 86901; 93005; 93010; 99291; G0378

== ENCOUNTER 2021-12-17 14:55 | Inpatient (IN) | payer BC, OTHER ==
[2021-12-17] MEDS ORDERED: KETOROLAC TROMETHAMINE 30 MG/1 ML VIAL IVPUSH ONE (15:59)
[2021-12-17] MEDS ORDERED: ACETAMINOPHEN 1000 MG/100 ML BAG IVPB ONE (15:59)
[2021-12-17] MEDS ORDERED: SODIUM CHLORIDE 0.9% 500 ML INFUS.BAG IV ONE (15:59)
[2021-12-17] MEDS ORDERED: ACETAMINOPHEN INJECTION 100 ML IVPB ONE (16:01)
[2021-12-17] MEDS ORDERED: KETOROLAC TROMETHAMINE 30 MG/1 ML VIAL ONE (16:01)
[2021-12-17 17:06] LABS: BASO % 0.3 % (0-2.0); EOS % 1.7 % (0-4.5); HEMATOCRIT 44.2 % (35.4-49); HEMOGLOBIN 14.5 GM/dL (11.7-16.9); LYMPH % 8.9 % (8-40); MCHC 32.7 g/dl (32.0-35.9); MEAN CELL VOLUME 82.5 fl (80-96); MEAN PLT VOLUME 8.8 fl (7.5-11.1); MONO % 7.5 % (3.8-10.2); NEUT % 81.6 % (42.8-82.8); PLATELET COUNT 274 10^3/uL (134-434); RBC 5.36 M/mm3 (4.00-5.60); RDW 14.9 % (11.9-15.9); WHITE BLOOD COUNT 18.2 K/mm3 (4.0-10.0)
[2021-12-17 17:29] LABS: CALCIUM 9.9 mg/dL (8.5-10.1); EPI CELLS 8 /uL (0-25.1); HYALINE CASTS 3 /uL (0-3.1); PH,URINE 5.5 (5.0-8.0); URINE APPEARANCE CLEAR; URINE BACTERIA 9 /uL (0-1359); URINE BILIRUBIN 1+ (NEGATIVE); URINE COLOR ORANGE; URINE GLUCOSE (UA) NEGATIVE (NEGATIVE); URINE KETONE 1+ (NEGATIVE); URINE LEUK ESTERASE TRACE (NEGATIVE); URINE NITRITE NEGATIVE (NEGATIVE); URINE PROTEIN 2+ (NEGATIVE); URINE RBC 11 /uL (0-23.9); URINE WBC 12 /uL (0-25.8)
[2021-12-17 17:30] LABS: ALBUMIN 3.5 g/dl (3.4-5.0); BLOOD UREA NITROGEN 12.6 mg/dL (7-18)
[2021-12-17 17:33] LABS: CREATININE 1.2 mg/dL (0.55-1.3)
[2021-12-17 17:35] LABS: BILIRUBIN,TOTAL 0.9 mg/dL (0.2-1)
[2021-12-17] MEDS ORDERED: CEFTRIAXONE 1,000 MG in DEXTROSE 5%-WATER - 50 ML IVPB ONE (20:43)
[2021-12-17] MEDS ORDERED: CEFTRIAXONE 1 GM/50 ML BAG ONE (20:50)
[2021-12-17 23:37] LABS: OPIATES, URI NEGATIVE (NEGATIVE); PHENCYCLIDINE,URINE NEGATIVE (NEGATIVE); URINE BARBITURATES NEGATIVE (NEGATIVE)
[2021-12-17 23:38] LABS: METHADONE, UR NEGATIVE (NEGATIVE)
[2021-12-17 23:45] LABS: COCAINE, UR POSITIVE (NEGATIVE); URINE AMPHETAMINES NEGATIVE (NEGATIVE); URINE BENZODIAZEPINES NEGATIVE (NEGATIVE)
[2021-12-18 00:29] VITALS: BMI 40.1
[2021-12-18] MEDS ORDERED: LISINOPRIL 20 MG TABLET PO SCH ×2 (00:53→10:06)
[2021-12-18] MEDS: INSULIN SLIDING SCALE (NOVOLOG) 1 VIAL SQ SCH ×4 (06:48→21:52)
[2021-12-18] MEDS: INSULIN (LEVEMIR) 100 UNITS/ML UNITS SQ SCH ×2 (07:47→18:49)
[2021-12-18 08:16] LABS: HEMATOCRIT 39.5 % (35.4-49); HEMOGLOBIN 13.1 GM/dL (11.7-16.9); MCH 27.5 pg (25.7-33.7); MCHC 33.1 g/dl (32.0-35.9); MEAN PLT VOLUME 9.4 fl (7.5-11.1); PLATELET COUNT 232 10^3/uL (134-434); RBC 4.75 M/mm3 (4.00-5.60); RDW 14.8 % (11.9-15.9); WHITE BLOOD COUNT 13.5 K/mm3 (4.0-10.0)
[2021-12-18 08:28] LABS: BLOOD UREA NITROGEN 13.8 mg/dL (7-18); CALCIUM 8.8 mg/dL (8.5-10.1)
[2021-12-18 08:29] LABS: ALBUMIN 2.9 g/dl (3.4-5.0)
[2021-12-18 08:32] LABS: CREATININE 0.9 mg/dL (0.55-1.3); PHOSPHOROUS 3.4 mg/dL (2.5-4.9)
[2021-12-18 08:33] LABS: BILIRUBIN,TOTAL 0.6 mg/dL (0.2-1)
[2021-12-18] MEDS ORDERED: DEXTROSE 5%-WATER - 50 ML IVPB ONE (09:29)
[2021-12-18] MEDS ORDERED: cefTRIAXone SODIUM 1 GM VIAL ONE (09:29)
[2021-12-18] MEDS ORDERED: LISINOPRIL 10 MG TABLET PO SCH (10:00)
[2021-12-18] MEDS ORDERED: HYDROCHLOROTHIAZIDE 12.5 MG CAPSULE (FP) PO SCH (10:00)
[2021-12-18] MEDS ORDERED: ENOXAPARIN NA (PORCINE) 40 MG/0.4 ML DISP.SYRIN SQ SCH ×2 (10:00)
[2021-12-18] MEDS ORDERED: CEFTRIAXONE 1 GM in DEXTROSE 5%-WATER - 50 ML IVPB SCH (10:00)
[2021-12-18] MEDS ORDERED: DEXTROSE 5%-WATER 100 ML IVPB ONE (10:39)
[2021-12-18] MEDS: amLODIPine BESYLATE 5 MG TABLET (FP) PO SCH (10:52)
[2021-12-18] MEDS: ENOXAPARIN NA (PORCINE) 40 MG/0.4 ML DISP.SYRIN SQ SCH (10:52)
[2021-12-18] MEDS: CEFTRIAXONE 2 GM in DEXTROSE 5%-WATER 100 ML IVPB SCH (10:52)
[2021-12-18] MEDS: MELATONIN 5 MG TABLETS PO PRN (21:42)
[2021-12-18] MEDS: ATORVASTATIN CA 40 MG TABLET (FP) PO SCH (21:42)
[2021-12-18] MEDS: LISINOPRIL 20 MG TABLET PO SCH (21:42)
[2021-12-18] MEDS: ACETAMINOPHEN 325 MG TABLET (FP) PO PRN (21:43)
[2021-12-19] MEDS: INSULIN SLIDING SCALE (NOVOLOG) 1 VIAL SQ SCH ×4 (06:21→21:35)
[2021-12-19] MEDS: INSULIN (LEVEMIR) 100 UNITS/ML UNITS SQ SCH ×2 (06:21→17:37)
[2021-12-19] MEDS ORDERED: DEXTROSE 5%-WATER 100 ML IVPB ONE (09:08)
[2021-12-19] MEDS: amLODIPine BESYLATE 5 MG TABLET (FP) PO SCH (09:24)
[2021-12-19] MEDS: ENOXAPARIN NA (PORCINE) 40 MG/0.4 ML DISP.SYRIN SQ SCH (09:25)
[2021-12-19] MEDS: LISINOPRIL 20 MG TABLET PO SCH ×2 (09:26→21:41)
[2021-12-19] MEDS: CEFTRIAXONE 2 GM in DEXTROSE 5%-WATER 100 ML IVPB SCH (09:26)
[2021-12-19] MEDS: ATORVASTATIN CA 40 MG TABLET (FP) PO SCH (21:41)
[2021-12-19] MEDS: ACETAMINOPHEN 325 MG TABLET (FP) PO PRN (21:41)
[2021-12-19] MEDS: MELATONIN 5 MG TABLETS PO PRN (21:41)
[2021-12-19 23:07] VITALS: RESP 20
[2021-12-20] MEDS: INSULIN (LEVEMIR) 100 UNITS/ML UNITS SQ SCH ×2 (06:14→17:48)
[2021-12-20] MEDS: INSULIN SLIDING SCALE (NOVOLOG) 1 VIAL SQ SCH ×4 (06:14→21:27)
[2021-12-20] MEDS: amLODIPine BESYLATE 5 MG TABLET (FP) PO SCH ×2 (07:10→07:18)
[2021-12-20 09:04] LABS: BASO % 0.9 % (0-2.0); EOS % 8.8 % (0-4.5); HEMATOCRIT 39.4 % (35.4-49); HEMOGLOBIN 13.2 GM/dL (11.7-16.9); LYMPH % 17.8 % (8-40); MCH 27.8 pg (25.7-33.7); MCHC 33.6 g/dl (32.0-35.9); MEAN CELL VOLUME 82.6 fl (80-96); MEAN PLT VOLUME 9.2 fl (7.5-11.1); MONO % 8.4 % (3.8-10.2); NEUT % 64.1 % (42.8-82.8); PLATELET COUNT 244 10^3/uL (134-434); RBC 4.77 M/mm3 (4.00-5.60); RDW 14.6 % (11.9-15.9)
[2021-12-20 09:12] LABS: CALCIUM 9.1 mg/dL (8.5-10.1)
[2021-12-20 09:13] LABS: ALBUMIN 2.8 g/dl (3.4-5.0); BLOOD UREA NITROGEN 9.1 mg/dL (7-18); MAGNESIUM 2.1 mg/dL (1.8-2.4)
[2021-12-20 09:16] LABS: CREATININE 0.8 mg/dL (0.55-1.3); PHOSPHOROUS 3.3 mg/dL (2.5-4.9)
[2021-12-20 09:17] LABS: BILIRUBIN,TOTAL 0.6 mg/dL (0.2-1); TOT PROT 6.9 g/dl (6.4-8.2)
[2021-12-20] MEDS ORDERED: DEXTROSE 5%-WATER 100 ML IVPB ONE (09:53)
[2021-12-20] MEDS: CEFTRIAXONE 2 GM in DEXTROSE 5%-WATER 100 ML IVPB SCH (10:22)
[2021-12-20] MEDS: ENOXAPARIN NA (PORCINE) 40 MG/0.4 ML DISP.SYRIN SQ SCH (10:23)
[2021-12-20] MEDS: LISINOPRIL 20 MG TABLET PO SCH ×2 (10:23→21:26)
[2021-12-20] MEDS: DEXTROSE 5%-0.45% SALINE 1,000 ML IV SCH (13:26)
[2021-12-20] MEDS ORDERED: amLODIPine BESYLATE 5 MG TABLET (FP) PO ONE (18:17)
[2021-12-20] MEDS ORDERED: amLODIPine BESYLATE 10 MG TABLET (FP) PO SCH (18:18)
[2021-12-20] MEDS: ATORVASTATIN CA 40 MG TABLET (FP) PO SCH (21:26)
[2021-12-20] MEDS: hydrALAZINE HCL 10 MG TABLET PO SCH (21:26)
[2021-12-20] MEDS: MELATONIN 5 MG TABLETS PO PRN (21:26)
[2021-12-20] MEDS: ACETAMINOPHEN 325 MG TABLET (FP) PO PRN (22:04)
[2021-12-21] MEDS: hydrALAZINE HCL 10 MG TABLET PO SCH (06:05)
[2021-12-21] MEDS: INSULIN SLIDING SCALE (NOVOLOG) 1 VIAL SQ SCH ×3 (06:06→16:35)
[2021-12-21] MEDS: INSULIN (LEVEMIR) 100 UNITS/ML UNITS SQ SCH ×2 (07:30→16:34)
[2021-12-21 08:34] LABS: HEMATOCRIT 40.9 % (35.4-49); HEMOGLOBIN 13.5 GM/dL (11.7-16.9); MCH 27.2 pg (25.7-33.7); MCHC 32.9 g/dl (32.0-35.9); MEAN CELL VOLUME 82.7 fl (80-96); MEAN PLT VOLUME 9.3 fl (7.5-11.1); PLATELET COUNT 258 10^3/uL (134-434); RBC 4.95 M/mm3 (4.00-5.60); RDW 14.8 % (11.9-15.9); WHITE BLOOD COUNT 6.6 K/mm3 (4.0-10.0)
[2021-12-21 08:47] LABS: BLOOD UREA NITROGEN 7.5 mg/dL (7-18); CALCIUM 9.1 mg/dL (8.5-10.1)
[2021-12-21 08:51] LABS: CREATININE 0.8 mg/dL (0.55-1.3)
[2021-12-21] MEDS ORDERED: DEXTROSE 5%-WATER 100 ML IVPB ONE (09:28)
[2021-12-21] MEDS: DEXTROSE 5%-0.45% SALINE 1,000 ML IV SCH ×2 (09:42→12:15)
[2021-12-21] MEDS: LISINOPRIL 20 MG TABLET PO SCH (09:43)
[2021-12-21] MEDS: CEFTRIAXONE 2 GM in DEXTROSE 5%-WATER 100 ML IVPB SCH (09:43)
[2021-12-21] MEDS: ENOXAPARIN NA (PORCINE) 40 MG/0.4 ML DISP.SYRIN SQ SCH ×2 (09:43→09:54)
[2021-12-21] MEDS ORDERED: hydrALAZINE HCL 25 MG TABLET (FP) PO SCH (13:31)
[2021-12-21 15:21] VITALS: BP 153/103; PULSE 68; TEMP 98
== END 2021-12-21 18:41 | disposition home or self-care (01) | DRG 392 ==
LOC: JER 14:55 → JERBED 22:01 → J8W 12-18 00:11
PROVIDERS: ADMIT Internal Medicine; ATTEND Internal Medicine
DX: K57.32 Diverticulitis of large intestine without perforation or abscess without bleeding (principal); Z68.41 Body mass index [BMI] 40.0-44.9, adult; E11.9 Type 2 diabetes mellitus without complications; E78.5 Hyperlipidemia, unspecified; I16.0 Hypertensive urgency; E66.9 Obesity, unspecified; R10.32 Left lower quadrant pain; D72.829 Elevated white blood cell count, unspecified; F17.200 Nicotine dependence, unspecified, uncomplicated; F14.10 Cocaine abuse, uncomplicated
CPT/HCPCS: 36415; 74177-TC; 80048; 80053; 80307; 81003; 82962; 83735; 84100; 85025; 85027; 86140; 87040; 87086; 93005; 93010; 99285-25; C9803-CS; Q9967; U0003; U0005

== ENCOUNTER 2022-03-24 03:59 | Day surgery (SDC) | payer BC ==
[2022-03-22 13:56] VITALS: BMI 38.7
[2022-03-24 08:38] VITALS: TEMP 98
[2022-03-24 08:47] VITALS: RESP 13
[2022-03-24 09:10] VITALS: BP 124/94; PULSE 72
== END 2022-03-24 09:40 | disposition home or self-care (01) ==
LOC: JASU-ENDO 03:59
PROVIDERS: ATTEND Internal Medicine Gastroenterology
PROC: 0DBN8ZX Excision of Sigmoid Colon, Via Natural or Artificial Opening Endoscopic, Diagnostic (ICD-10-PCS; 2022-03-24)
PROC: 0DBH8ZX Excision of Cecum, Via Natural or Artificial Opening Endoscopic, Diagnostic (ICD-10-PCS; principal; 2022-03-24 08:30)
DX: D12.0 Benign neoplasm of cecum (principal); K62.89 Other specified diseases of anus and rectum; K63.89 Other specified diseases of intestine; K57.30 Diverticulosis of large intestine without perforation or abscess without bleeding; K64.8 Other hemorrhoids; I10 Essential (primary) hypertension; E11.9 Type 2 diabetes mellitus without complications; Z79.4 Long term (current) use of insulin
CPT/HCPCS: 82962; 88305-TC

== ENCOUNTER 2022-08-13 10:57 | Emergency (ER) | payer BC, OTHER ==
[2022-08-13 11:24] VITALS: BP 139/86; PULSE 76; RESP 20; TEMP 98.1; BMI 39.0
[2022-08-13] MEDS ORDERED: ACETAMINOPHEN 500 MG TABLET (FP) PO ONE (13:19)
[2022-08-13] MEDS ORDERED: LIDOCAINE 5% TOPICAL PATCH TP ONE (13:20)
[2022-08-13] MEDS ORDERED: ACETAMINOPHEN 500 MG TABLET (FP) ONE (13:31)
[2022-08-13] MEDS ORDERED: LIDOCAINE 5% TOPICAL PATCH ONE (13:31)
== END 2022-08-13 13:52 | disposition home or self-care (01) ==
LOC: JERFT 10:57
DX: R07.82 Intercostal pain (principal); V49.40XA Driver injured in collision with unspecified motor vehicles in traffic accident, initial encounter
CPT/HCPCS: 71046-TC-FY; 72128-TC; 72131-TC; 93005; 93010; 99285-25